=== PATIENT | male | born 1965 | race Caucasian/White ===

== ENCOUNTER → 2023-12-08 | Outpatient (CLI) | payer MEDICARE ==
--- NOTE | 2023-12-08 14:59 | US ---
EXAMINATION TYPE: US kidneys/renal and bladder DATE OF EXAM: 12/08/2023 COMPARISON: NONE CLINICAL INDICATION: Male, 57 years old with history of N20.0 CALCULUS KIDNEY; Hx stone, rt flank melvin n early september TECHNIQUE: Grayscale and color Doppler imaging of the bilateral kidneys and urinary bladder: FINDINGS: EXAM MEASUREMENTS: Right Kidney: 11.2x6.3x5.8 cm Left Kidney: 12.9x4.9x6.2 cm Right Kidney: No hydronephrosis or masses seen Left Kidney: No hydronephrosis or masses seen Bladder: wnl Bilateral Jets seen: Yes There is no evidence for hydronephrosis. No nephrolithiasis is seen. No masses are identified. The urinary bladder is anechoic. Bilateral ureteral jets are seen. exam limited by bowel and habitus IMPRESSION: Normal renal ultrasound. [facility], , 12/08/2023 2:57 PM
== END | disposition home or self-care (01) ==
LOC: RADUSWWP 14:26
PROVIDERS: ATTEND Urology
DX: N20.0 Calculus of kidney (principal)
CPT/HCPCS: 76770

== ENCOUNTER 2024-01-28 07:04 | Inpatient (IN) | payer MEDICARE ==
--- NOTE | 2024-01-28 07:11 | ED ---
Chest Pain HPI - General Stated Complaint: Chest pain Time Seen by Provider: 01/28/24 07:05 Source: patient, RN notes reviewed Mode of arrival: ambulatory Limitations: no limitations - History of Present Illness Initial Comments: 58-year-old male presents emergency department chief complaint of chest pain. Patient states that started late last night. States he did workout chest and shoulders but usually does not have any pain in his chest he states he has shoulder pain from prior surgery he states that he has had persistent pain throughout the night centralized. Does have a history of hypertension denies any significant history of diabetes or hyperlipidemia no prior cardiac disease no history of A-fib patient states he does feel short of breath with walking, exertional shortness of breath. Patient does admit that has been sick recently that started around . No reports of fever states he does feel his heart racing after he walked in from outside. - Related Data Home Medications Medication Instructions Recorded Confirmed allopurinoL [Allopurinol] 100 mg PO DAILY 06/14/14 01/28/24 amLODIPine [Norvasc] 5 mg PO DAILY 10/02/14 01/28/24 allopurinoL [Zyloprim] 300 mg PO DAILY 01/28/24 01/28/24 Allergies Allergy/AdvReac Type Severity Reaction Status Date / Time adhesive Allergy Rash/Hives Verified 10/02/14 08:45 Review of Systems ROS Statement: Those systems with pertinent positive or pertinent negative responses have been documented in the HPI. ROS Other: All systems not noted in ROS Statement are negative. EKG Findings - EKG Comments: EKG Findings:: EKG performed at 7: 19 sinus tachycardia rate of 122 QRS 162 QRS 89 QT/QTc 326/399 - EKG Results: EKG: interpreted by AARTI Past Medical History Past Medical History: Hyperlipidemia, Hypertension, Thyroid Disorder Additional Past Medical History / Comment(s): watches cholesterol History of Any Multi-Drug Resistant Organisms: None Reported Past Surgical History: Appendectomy, Cholecystectomy Additional Past Surgical History / Comment(s): colonoscopy, rt shoulder surgery Past Anesthesia/Blood Transfusion Reactions: No Reported Reaction Past Psychological History: No Psychological Hx Reported Past Alcohol Use History: Occasional Past Drug Use History: None Reported - Past Family History Mother Family Medical History: No Reported History General Exam Limitations: no limitations General appearance: alert, in no apparent distress Head exam: Present: atraumatic, normocephalic, normal inspection Eye exam: Present: normal appearance, PERRL, EOMI. Absent: scleral icterus, conjunctival injection, periorbital swelling ENT exam: Present: normal exam, normal oropharynx, mucous membranes moist Neck exam: Present: normal inspection, full ROM. Absent: tenderness, meningismus, lymphadenopathy Respiratory exam: Present: normal lung sounds bilaterally. Absent: respiratory distress, wheezes, rales, rhonchi, stridor Cardiovascular Exam: Present: regular rate, normal rhythm, normal heart sounds. Absent: systolic murmur, diastolic murmur, rubs, gallop, clicks GI/Abdominal exam: Present: soft, normal bowel sounds. Absent: distended, tenderness, guarding, rebound, rigid Neurological exam: Present: alert, oriented X3, CN II-XII intact, reflexes normal. Absent: motor sensory deficit Skin exam: Present: warm, dry, intact, normal color. Absent: rash Course Vital Signs 01/28/24 01/28/24 07:07 07:33 Temperature 97.5 F L 99.5 F Pulse Rate 127 H 118 H Respiratory 20 26 H Rate Blood Pressure 162/90 144/78 O2 Sat by Pulse 96 Oximetry Chest Pain MDM - MDM Was pt. sent in by a medical professional or institution (, PA, PLASTER PATTERNMAKER, urgent care, hospital, or longterm...) When possible be specific @ -No Did you speak to anyone other than the patient for history (EMS, parent, family, police, friend...)? What history was obtained from this source @ -No Did you review nursing and triage notes (agree or disagree)? Why? @ -I reviewed and agree with nursing and triage notes Were old charts reviewed (outside hosp., previous admission, EMS record, old EKG, old radiological studies, urgent care reports/EKG's, longterm records)? Report findings @ -No old charts were reviewed Differential Diagnosis (chest pain, altered mental status, abdominal pain women, abdominal pain men, vaginal bleeding, weakness, fever, dyspnea, syncope, headache, dizziness, GI bleed, back pain, seizure, CVA, palpatations, mental health, musculoskeletal)? @ -Differential Chest Pain: Stable Angina, Unstable Angina, STEMI, NSTEMI Aortic Dissection, Pneumothorax, Musculoskeletal, Esophageal Spasm GERD, Cholecystitis, Pancreatitis, Zoster, this is not meant to be an all-inclusive list. EKG interpreted by me (3pts min.). @ -As above X-rays interpreted by me (1pt min.). @ -Chest x-ray shows no acute cardiopulmonary process. CT interpreted by me (1pt min.). @ -None done U/S interpreted by me (1pt. min.). @ -None done What testing was considered but not performed or refused? (CT, X-rays, U/S, labs)? Why? @ -None What meds were considered but not given or refused? Why? @ -None Did you discuss the management of the patient with other professionals (professionals i.e. Dr., PA, PLASTER PATTERNMAKER, lab, RT, psych nurse, geriatric social work professor, saw sharpener, teacher, collections officer, patient case coordinator)? Give summary @ -EMH for admission Was smoking cessation discussed for >3mins.? @ -No Was critical care preformed (if so, how long)? @ -35 minutes Were there social determinants of health that impacted care today? How? (Homelessness, low income, unemployed, alcoholism, drug addiction, transportation, low edu. Level, literacy, decrease access to med. care, fdc, rehab)? @ -No Was there de-escalation of care discussed even if they declined (Discuss DNR or withdrawal of care, Hospice)? DNR status @ -No What co-morbidities impacted this encounter? (DM, HTN, Smoking, COPD, CAD, Cancer, CVA, ARF, Chemo, Hep., AIDS, mental health diagnosis, sleep apnea, morbid obesity)? @ -[Hypertension Was patient admitted / discharged? Hospital course, mention meds given and route, prescriptions, significant lab abnormalities, going to OR and other pertinent info. @ -Admitted patient presented for chest pain, dyspnea. Patient is COVID-19 positive no patient has elevated troponin, concerning CAD risk factors and symptoms. Patient will be admitted for repeat troponin, echocardiogram, cardiology evaluation. Undiagnosed new problem with uncertain prognosis? @ -[No Drug Therapy requiring intensive monitoring for toxicity (Heparin, Nitro, Insulin, Cardizem)? @Heparin Were any procedures done? @ -No Diagnosis/symptom? @ -Chest pain, COVID-19 Acute, or Chronic, or Acute on Chronic? @ -Acute Uncomplicated (without systemic symptoms) or Complicated (systemic symptoms)? @ -Complicated Side effects of treatment? @ -No Exacerbation, Progression, or Severe Exacerbation? @ -No Poses a threat to life or bodily function? How? (Chest pain, [place], [place], pneumonia, PE, COPD, DKA, ARF, appy, cholecystitis, CVA, Diverticulitis, Homicidal, Suicidal, threat to staff... and all critical care pts) @ -Yes ACS, causing cardiac arrest Critical Care Time Critical Care Time: Yes Total Critical Care Time: 35 Disposition Clinical Impression: Chest pain, COVID-19 Disposition: ADMITTED IP TO THIS HOSP Condition: Fair Referrals: Jackie Enriquez MD [Primary Care Provider] - 1-2 days Time of Disposition: 09:59
[2024-01-28] MEDS: ASPIRIN 81 MG PO STA (07:37)
[2024-01-28 08:29] LABS: Basophils % (A) 0 %; Eosinophils # (A) 0.1 k/uL (0-0.7); Eosinophils % (A) 1 %; HCT 48.5 % (39.0-53.0); HGB 16.1 gm/dL (13.0-17.5); Lymphocytes # (A) 0.5 k/uL (1.0-4.8); Lymphocytes % (A) 4 %; MCH 29.4 pg (25.0-35.0); MCHC 33.1 g/dL (31.0-37.0); MCV 88.9 fL (80.0-100.0); Mean Platelet Volume 8.6; Monocytes # (A) 0.9 k/uL (0-1.0); Monocytes % (A) 7 %; Neutrophils # (A) 10.7 k/uL (1.3-7.7); Neutrophils % (A) 87 %; Platelet Count 151 k/uL (150-450); RBC 5.45 m/uL (4.30-5.90); RDW 13.2 % (11.5-15.5); WBC 12.3 k/uL (3.8-10.6)
[2024-01-28 08:44] LABS: INR 1.1 (<1.2); Partial Thromboplastin Time 24.6 sec (22.0-30.0); Prothrombin Time 11.4 sec (10.0-12.5)
[2024-01-28 08:47] LABS: ALT 35 U/L (4-49); AST 34 U/L (17-59); African American GFR (CKD) >90 (>60 ml/min/1.73 sqM); Albumin 4.2 g/dL (3.5-5.0); Alkaline Phosphatase 60 U/L (38-126); Anion Gap 6 mmol/L; Blood Urea Nitrogen 20 mg/dL (9-20); Calcium 9.2 mg/dL (8.4-10.2); Carbon Dioxide 32 mmol/L (22-30); Chloride 101 mmol/L (98-107); Glucose 180 mg/dL (74-99); Magnesium 1.6 mg/dL (1.6-2.3); Non-African American GFR(CKD) 87 (>60 ml/min/1.73 sqM); Sodium 139 mmol/L (137-145); Total Protein 6.7 g/dL (6.3-8.2)
--- NOTE | 2024-01-28 08:53 | XR ---
EXAMINATION TYPE: XR chest 2V DATE OF EXAM: 01/28/2024 8:39 AM COMPARISON: None CLINICAL INDICATION: Male, 58 years old with history of Chest Pain, , TECHNIQUE: PA and lateral views FINDINGS: Heart normal size. Aorta and pulmonary vasculature within normal limits. No consolidation or pleural effusion. Some streaky left basilar opacity. [facility] throughout the thoracic spine. IMPRESSION: Note definite acute process. DISH throughout the thoracic spine. [facility], , 01/28/2024 8:51 AM
[2024-01-28 08:55] LABS: NT-Pro-B-Type Natriuretic Pept 28 pg/mL
[2024-01-28] MEDS ORDERED: NITROGLYCERIN SL TABS 0.4 MG TAB SUBLINGUAL PRN (09:57)
[2024-01-28] MEDS: ACETAMINOPHEN TAB 500 MG TAB PO STA (10:25)
[2024-01-28] MEDS: KETOROLAC 15 MG/ML 1 ML VIAL IVP STA (10:27)
[2024-01-28] MEDS: HEPARIN SODIUM 1,000 UN/ML (10ML VL) IV ONE (10:40)
[2024-01-28] MEDS: HEPARIN SOD,PORK IN 0.45% NACL 25,000 UNIT in 0.45% NACL 1 250ML.BAG IV SCH (10:41)
[2024-01-28] MEDS: METOPROLOL SUCCINATE (ER) 50 MG TAB.ER.24H PO SCH (13:10)
[2024-01-28] MEDS: ISOSORBIDE MONONITRATE ER 30 MG TAB.ER.24H PO SCH (13:11)
[2024-01-28] MEDS ORDERED: busPIRone HCl 10 MG TAB PO PRN (13:47)
--- NOTE | 2024-01-28 14:06 | P.CRDCN ---
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 He has a past medical history of hypertension, hypothyroidism, hyperlipidemia, GERD. We have been asked to evaluate the patient for chest pain. Patient states that he developed chest pain and was difficult to take a deep breath. He also had involvement of the left shoulder. He had onset at 10 PM yesterday. He states he still hurts when he takes a deep breath. No cough no fever. He states he recently was working out and sometimes his left shoulder gets sore from this anyway. He was not sure that his symptoms were related to his heart. He does state he has nasal congestion has been going on for couple days. Patient was found to be positive for COVID. He states he is a non-smoker, no alcohol use and no drug use. No family history of coronary artery disease. Patient is seen today in the emergency center waiting for a bed on the cardiac stepdown unit. Blood pressure 135/71, heart rate 105, pulse ox 96% on room air. Upon arrival, heart rate was 127. Patient has been started on a heparin drip. -EKG: Sinus tachycardia 122 bpm -Chest x-ray: No acute process -Laboratory studies: Troponin 0.049 and 0.082. WBC 12.3, hemoglobin 16. Creatinine 0.96. COVID 19 detected. -Home cardiac medications: Amlodipine 5 mg daily, atorvastatin 40 mg daily, losartan 100 mg daily. Review Of Systems: At the time of my exam: CONSTITUTIONAL: Denies fever or chills. HEENT: Denies blurred vision, vision changes, or eye pain. Denies hemoptysis CARDIOVASCULAR: Denies chest pain. Denies orthopnea. Denies PND. Denies palpitations RESPIRATORY: Denies shortness of breath. GASTROINTESTINAL: Denies abdominal pain. Denies nausea or vomiting. HEMATOLOGIC: Denies bleeding disorders. GENITOURINARY: Denies any blood in urine. SKIN: Denies puritis. Denies rash. Physical examination: Gen: This is a 58-year-old male in no acute distress VS: reviewed HEENT: Head is atraumatic, normocephalic. Pupils equal, round. Sclerae is anicteric. NECK: Supple. No JVD. LUNGS: Clear to auscultation. No wheezes or rhonchi. No intercostal retractions. HEART: Regular rate and rhythm. No murmur. ABDOMEN: Soft No tenderness. EXTREMITIES: No pedal edema. No calf tenderness. NEUROLOGICAL: Patient is awake, alert and oriented x3. Assessment: NSTEMI COVID-19 Hypertension Hyperlipidemia Hypothyroidism GERD Plan: Resume patient's home cardiac medications, decrease losartan to 50 mg daily Continue heparin drip Start patient on aspirin 81 mg daily, resume atorvastatin Add Imdur 30 mg daily and Toprol XL 50 mg daily Obtain 2-D echocardiogram and Doppler study to assess cardiac structure and function N.p.o. after midnight for possible cardiac catheterization. Patient will be assessed in the morning Further recommendations to follow based upon clinical course Thank you kindly for this consultation. Nurse practitioner note has been reviewed, I agree with documented findings and plan of care. Patient was seen and examined. Past Medical History Past Medical History: Hyperlipidemia, Hypertension, Thyroid Disorder Additional Past Medical History / Comment(s): watches cholesterol History of Any Multi-Drug Resistant Organisms: None Reported Past Surgical History: Appendectomy, Cholecystectomy Additional Past Surgical History / Comment(s): colonoscopy, rt shoulder surgery Past Anesthesia/Blood Transfusion Reactions: No Reported Reaction Past Psychological History: No Psychological Hx Reported Past Alcohol Use History: Occasional Past Drug Use History: None Reported - Past Family History Mother Family Medical History: No Reported History Medications and Allergies Home Medications Medication Instructions Recorded Confirmed Type allopurinoL [Allopurinol] 100 mg PO DAILY 06/14/14 01/28/24 History amLODIPine [Norvasc] 5 mg PO DAILY 10/02/14 01/28/24 History Atorvastatin [Lipitor] 40 mg PO DAILY 01/28/24 01/28/24 History Gabapentin [Neurontin] 400 mg PO BID PRN 01/28/24 01/28/24 History Levothyroxine Sodium [Synthroid] 175 mcg PO AC-BRKFST 01/28/24 01/28/24 History Liothyronine Sodium [Cytomel] 25 mcg PO AC-BID 01/28/24 01/28/24 History Loratadine [Claritin] 10 mg PO DAILY 01/28/24 01/28/24 History Losartan Potassium [Cozaar] 100 mg PO DAILY 01/28/24 01/28/24 History Omeprazole [PriLOSEC] 20 mg PO DAILY 01/28/24 01/28/24 History Testosterone Cypionate 200 mg IM Q10D 01/28/24 01/28/24 History [Depo-Testosterone] allopurinoL [Zyloprim] 300 mg PO DAILY 01/28/24 01/28/24 History busPIRone HCl [Buspar] 10 mg PO BID PRN 01/28/24 01/28/24 History Allergies Allergy/AdvReac Type Severity Reaction Status Date / Time adhesive Allergy Rash/Hives Verified 10/02/14 08:45 Physical Exam Vitals: Vital Signs Temp Pulse Resp BP Pulse Ox 01/28/24 10:47 99.1 F 114 H 24 152/76 01/28/24 07:33 99.5 F 118 H 26 H 144/78 01/28/24 07:07 97.5 F L 127 H 20 162/90 96 Intake and Output 01/27/24 01/28/24 01/28/24 22:59 06:59 14:59 Other: Weight 138.346 kg Results 01/28/24 08:13 01/28/24 08:13 Cardiac Enzymes 01/28/24 01/28/24 Range/Units 08:13 08:13 AST 34 (17-59) U/L Troponin I 0.049 H* (0.000-0.034) ng/mL Coagulation 01/28/24 Range/Units 08:13 PT 11.4 (10.0-12.5) sec APTT 24.6 (22.0-30.0) sec CBC 01/28/24 Range/Units 08:13 WBC 12.3 H (3.8-10.6) k/uL RBC 5.45 (4.30-5.90) m/uL Hgb 16.1 (13.0-17.5) gm/dL Hct 48.5 (39.0-53.0) % Plt Count 151 (150-450) k/uL Comprehensive Metabolic Panel 01/28/24 Range/Units 08:13 Sodium 139 (137-145) mmol/L Potassium 4.0 (3.5-5.1) mmol/L Chloride 101 (98-107) mmol/L Carbon Dioxide 32 H (22-30) mmol/L BUN 20 (9-20) mg/dL Creatinine 0.96 (0.66-1.25) mg/dL Glucose 180 H (74-99) mg/dL Calcium 9.2 (8.4-10.2) mg/dL AST 34 (17-59) U/L ALT 35 (4-49) U/L Alkaline Phosphatase 60 (38-126) U/L Total Protein 6.7 (6.3-8.2) g/dL Albumin 4.2 (3.5-5.0) g/dL Current Medications Generic Name Dose Route Start Last Admin Trade Name Freq PRN Reason Stop Dose Admin Aspirin 325 mg 01/29/24 09:00 Aspirin 325 Mg Tab PO DAILY [facility] Heparin Sodium (Porcine) 0 unit 01/28/24 09:32 Heparin Sodium 1,000 Un/Ml (10ml Vl) IV PER PROTOCOL PRN Low PTT Protocol Heparin Sodium/Sodium Chloride 250 mls @ 10.002 mls/hr 01/28/24 09:45 01/28/24 10:41 25,000 unit/ Sodium Chloride IV 7.23 units/kg/hr .Q24H LINDSAY 10.002 mls/hr Administration Protocol 7.23 UNITS/KG/HR Nitroglycerin 0.4 mg 01/28/24 09:57 Nitroglycerin Sl Tabs 0.4 Mg Tab SUBLINGUAL Q5M PRN Chest Pain Intake and Output 01/27/24 01/28/24 01/28/24 22:59 06:59 14:59 Other: Weight 138.346 kg Patient Weight 01/29/24 06:59 Weight 138.346 kg 01/28/24 08:13 01/28/24 08:13
[2024-01-28] MEDS: ATORVASTATIN 40 MG TAB PO SCH (15:58)
[2024-01-28] MEDS: amLODIPine 5 MG TAB PO SCH (15:58)
[2024-01-28] MEDS: HEPARIN SODIUM 1,000 UN/ML (10ML VL) IV PRN (18:30)
--- NOTE | 2024-01-28 20:20 | P.HPIM ---
History of Present Illness H&P Date: 01/28/24 Chief Complaint: Shortness of breath Patient is a 58-year-old male with a past medical history of hypertension, hyperlipidemia, hypothyroidism and anxiety presents to ER with complaints of chest pain. Patient states that he was having chest pain and left shoulder pain started last night and was also having difficulty taking deep breaths. Patient had subjective fevers and found to be 9 9 F at home. Was also having home shortness of breath with exertion. Also felt like heart beating fast with walking. Cough with no dyspnea sputum production. Patient's and his son are sick and his son came from college for the holiday. Patient did take with COVID-vaccine previously. Chest x-ray showed no definite acute process. DISH (diffuse idiopathic skeletal hyperostosis) throughout the thoracic spine. EKG showed sinus tachycardia. Heart rate went up to 122 Laboratory data showed WBC 12.3 hemoglobin 16.1 and platelets 151 neutrophils 10.7 D-dimer 0.25 Sodium 139 potassium 4.0 chloride 101 bicarb is 32 BUN 20 and creatinine 0.96 and blood sugar 180 liver enzymes are not elevated Troponin 0.049, 0.087 and 0.092 proBNP 28 COVID-19 PCR detected. Review of Systems Constitutional: Patient does have subjective fever. No chills. Generalized weakness and fatigue.. Abdomen: Patient denied nausea vomiting and diarrhea and abdominal pain. Cardiovascular: Patient did have chest pain and short of breath no palpitations. No leg swelling Respiratory: patient denied any cough or sputum production. Positive for shortness of breath Neurologic: Patient denied any numbness or tingling. no headache. Musculoskeletal: Patient denies any complaints of joint swelling or deformity. Skin: Negative Psychiatric: Negative Endocrine: No heat or cold intolerance. No recent weight gain. Genitourinary: No dysuria or hematuria. All other 14 point ROS negative except the above Past Medical History Past Medical History: Hyperlipidemia, Hypertension, Thyroid Disorder Additional Past Medical History / Comment(s): watches cholesterol History of Any Multi-Drug Resistant Organisms: None Reported Past Surgical History: Appendectomy, Cholecystectomy Additional Past Surgical History / Comment(s): colonoscopy, rt shoulder surgery Past Anesthesia/Blood Transfusion Reactions: No Reported Reaction Past Psychological History: No Psychological Hx Reported Past Alcohol Use History: Occasional Past Drug Use History: None Reported - Past Family History Mother Family Medical History: No Reported History Medications and Allergies Home Medications Medication Instructions Recorded Confirmed Type allopurinoL [Allopurinol] 100 mg PO DAILY 06/14/14 01/28/24 History amLODIPine [Norvasc] 5 mg PO DAILY 10/02/14 01/28/24 History Atorvastatin [Lipitor] 40 mg PO DAILY 01/28/24 01/28/24 History Gabapentin [Neurontin] 400 mg PO BID PRN 01/28/24 01/28/24 History Levothyroxine Sodium [Synthroid] 175 mcg PO AC-BRKFST 01/28/24 01/28/24 History Liothyronine Sodium [Cytomel] 25 mcg PO AC-BID 01/28/24 01/28/24 History Loratadine [Claritin] 10 mg PO DAILY 01/28/24 01/28/24 History Losartan Potassium [Cozaar] 100 mg PO DAILY 01/28/24 01/28/24 History Omeprazole [PriLOSEC] 20 mg PO DAILY 01/28/24 01/28/24 History Testosterone Cypionate 200 mg IM Q10D 01/28/24 01/28/24 History [Depo-Testosterone] allopurinoL [Zyloprim] 300 mg PO DAILY 01/28/24 01/28/24 History busPIRone HCl [Buspar] 10 mg PO BID PRN 01/28/24 01/28/24 History Allergies Allergy/AdvReac Type Severity Reaction Status Date / Time adhesive Allergy Rash/Hives Verified 10/02/14 08:45 Physical Exam Vitals: Vital Signs Temp Pulse Resp BP Pulse Ox 01/28/24 13:07 98.1 F 105 H 24 135/71 01/28/24 10:47 99.1 F 114 H 24 152/76 01/28/24 07:33 99.5 F 118 H 26 H 144/78 01/28/24 07:07 97.5 F L 127 H 20 162/90 96 Intake and Output 01/27/24 01/28/24 01/28/24 22:59 06:59 14:59 Other: Weight 138.346 kg PHYSICAL EXAMINATION: Patient is lying in the bed comfortably, no acute distress, awake alert and oriented.. HEENT: Normocephalic. Neck is supple. Pupils reactive. Nostrils clear. Oral cavity is moist. Neck reveals no JVD, carotid bruits, or thyromegaly. CHEST EXAMINATION: Trachea is central. Symmetrical expansion. Bilateral shallow breaths. No wheezing or rhonchi. CARDIAC: Normal S1, S2 with no gallops. No murmurs ABDOMEN: Soft. Bowel sounds normal. No organomegaly. No abdominal bruits. Extremities: reveal no edema. No clubbing or cyanosis Neurologically awake, alert, oriented x3 with well-coordinated movements. No focal deficits noted Skin: No rash or skin lesions. Psychiatric: Coperative. Nonsuicidal Musculoskeletal: No joint swelling or deformity. Normal range of motion. Results CBC & Chem 7: 01/28/24 08:13 01/28/24 08:13 Labs: Abnormal Lab Results - Last 24 Hours (Table) 01/28/24 01/28/24 01/28/24 Range/Units 08:13 08:13 08:13 WBC 12.3 H (3.8-10.6) k/uL Neutrophils # 10.7 H (1.3-7.7) k/uL Lymphocytes # 0.5 L (1.0-4.8) k/uL Carbon Dioxide 32 H (22-30) mmol/L Glucose 180 H (74-99) mg/dL Troponin I 0.049 H* (0.000-0.034) ng/mL SARS-CoV-2 (PCR) (Not Detectd) 01/28/24 01/28/24 Range/Units 08:28 10:33 WBC (3.8-10.6) k/uL Neutrophils # (1.3-7.7) k/uL Lymphocytes # (1.0-4.8) k/uL Carbon Dioxide (22-30) mmol/L Glucose (74-99) mg/dL Troponin I 0.087 H* (0.000-0.034) ng/mL SARS-CoV-2 (PCR) Detected A (Not Detectd) Thrombosis Risk Factor Assmnt - DVT/VTE Prophylaxis DVT/VTE Prophylaxis: Pharmacologic Prophylaxis ordered Assessment and Plan Assessment: Acute COVID-19 infection Exertional shortness of breath secondary to above Elevated troponin level possible demand ischemia/type II IA Hypertension Hyperemia Hypothyroidism GERD Anxiety DVT prophylaxis. Patient is already on heparin drip GI prophylaxis PPI Plan: Patient will be continued on telemonitoring. Continue with heparin drip. Patient will be continued on aspirin and statin send Imdur was added. Also Toprol-XL was added. 2D echocardiogram to assess left ventricular systolic function. Cardiology is considering catheterization. Continue with home medications. Continue with contact and droplet precautions. Follow-up closely. Time with Patient: Greater than 30
[2024-01-29 06:38] LABS: Basophils % (A) 0 %; Eosinophils # (A) 0.3 k/uL (0-0.7); Eosinophils % (A) 3 %; HCT 46.7 % (39.0-53.0); HGB 15.6 gm/dL (13.0-17.5); Lymphocytes # (A) 1.4 k/uL (1.0-4.8); Lymphocytes % (A) 15 %; MCH 29.8 pg (25.0-35.0); MCHC 33.4 g/dL (31.0-37.0); MCV 89.2 fL (80.0-100.0); Mean Platelet Volume 8.4; Monocytes # (A) 0.8 k/uL (0-1.0); Monocytes % (A) 8 %; Neutrophils # (A) 6.5 k/uL (1.3-7.7); Neutrophils % (A) 71 %; Platelet Count 151 k/uL (150-450); RBC 5.23 m/uL (4.30-5.90); RDW 13.6 % (11.5-15.5); WBC 9.1 k/uL (3.8-10.6)
[2024-01-29 06:46] LABS: INR 1.2 (<1.2); Partial Thromboplastin Time 49.1 sec (22.0-30.0); Prothrombin Time 12.7 sec (10.0-12.5)
[2024-01-29 06:59] LABS: LDH 168 U/L (120-246)
[2024-01-29 07:31] LABS: C Reactive Protein 18.7 mg/dL (<1.0)
[2024-01-29] MEDS ORDERED: NON FORMULARY DRUG (Losartan Potassium [Cozaar] 100 MG Tablet) PO SCH (09:00)
[2024-01-29] MEDS ORDERED: ASPIRIN 325 MG TAB PO SCH (09:00)
[2024-01-29] MEDS: CHOLECALCIFEROL 25 MCG (1000 IU) TABLET PO SCH (09:54)
[2024-01-29] MEDS: LOSARTAN 50 MG TAB PO SCH (09:54)
[2024-01-29] MEDS: allopurinoL 100 MG TAB PO SCH (09:54)
[2024-01-29] MEDS: ASPIRIN 81 MG PO SCH (09:54)
[2024-01-29] MEDS: PANTOPRAZOLE 40 MG TABLET PO SCH (09:54)
[2024-01-29] MEDS: LEVOTHYROXINE 88 MCG TAB PO SCH (09:54)
[2024-01-29] MEDS: ZINC SULFATE 220 MG CAP PO SCH (09:54)
--- NOTE | 2024-01-29 12:31 | CA ---
Transthoracic Echo Report Name: Chandrakant Whitmore Age: 58 Gender: M : 1965 Exam Date: 01/29/2024 07:44 Exam Location: [facility] Ht (in): 73 Wt (lb): 305 Ordering Physician: Marcellus Cortez PAC Attending/Referring Phys: [id number], Diego Tape Duplicator Yady Duong RDCS Procedure CPT: Indications: Chest Pain Cardiac Hx: Technical Quality: Technically difficult study Contrast 1: Definity Total Dose (mL): 2 Contrast 2: Total Dose (mL): MEASUREMENTS (Male / Female) Normal Values 2D ECHO LV Diastolic Diameter PLAX 4.9 cm 4.2 - 5.9 / 3.9 - 5.3 cm LV Systolic Diameter PLAX 3.8 cm IVS Diastolic Thickness 1.6 cm 0.6 - 1.0 / 0.6 - 0.9 cm LVPW Diastolic Thickness 1.8 cm 0.6 - 1.0 / 0.6 - 0.9 cm LV Relative Wall Thickness 0.7 RV Internal Dim ED PLAX 3.7 cm LA Systolic Diameter LX 4.0 cm 3.0 - 4.0 / 2.7 - 3.8 cm LV Diastolic Volume MOD BP 111.7 cm??? 67 - 155 / 56 - 104 cm??? LV Systolic Volume MOD BP 48.3 cm??? - 58 / 19 - 49 cm??? LV Ejection Fraction MOD BP 56.8 % >= 55 % LV Cardiac Index MOD BP 2093.3 cm???/min???m??? LV Diastolic Volume MOD 4C 116.5 cm??? LV Systolic Volume MOD 4C 52.4 cm??? LV Ejection Fraction MOD 4C 55.0 % LV Cardiac Index MOD 4C 2115.0 cm???/min???m??? LV Diastolic Length 4C 8.0 cm LV Systolic Length 4C 6.8 cm LV Diastolic Volume MOD 2C 105.6 cm??? LV Systolic Volume MOD 2C 43.9 cm??? LV Ejection Fraction MOD 2C 58.4 % LV Cardiac Index MOD 2C 2037.2 cm???/min???m??? LV Diastolic Length 2C 8.2 cm LV Systolic Length 2C 7.0 cm LA Volume 62.5 cm??? 18 - 58 / 22 - 52 cm??? LA Volume Index 22.9 cm???/m??? 16 - 28 cm???/m??? M-MODE Aortic Root Diameter MM 4.0 cm AV Cusp Separation MM 2.7 cm DOPPLER AV Peak Velocity 115.4 cm/s AV Peak Gradient 5.3 mmHg MV Area PHT 5.7 cm??? Mitral E Point Velocity 92.5 cm/s Mitral A Point Velocity 76.8 cm/s Mitral E to A Ratio 1.2 MV Deceleration Time 133.9 ms TR Peak Velocity 307.7 cm/s TR Peak Gradient 37.9 mmHg Right Ventricular Systolic Press 42.9 mmHg FINDINGS Left Ventricle Left ventricular ejection fraction is estimated at 45-50 %. Moderate concentric left ventricular hypertrophy. Left ventricular cavity size normal. Right Ventricle Mild right ventricular dilatation. Mild pulmonary hypertension. Right Atrium Normal right atrial size. No right atrial thrombus or mass seen. Left Atrium Mildly increased left atrial volume. No left atrial thrombus or mass present. Mitral Valve Structurally normal mitral valve. No mitral stenosis, regurgitation or prolapse. Aortic Valve Trileaflet aortic valve. No aortic valve stenosis or regurgitation. Tricuspid Valve Structurally normal tricuspid valve. Mild tricuspid regurgitation. Pulmonic Valve Pulmonic valve not well visualized. Pericardium No pericardial or pleural effusion. Aorta Moderate aortic dilatation at the level of the sinuses of valsalva 40 mm CONCLUSIONS Left ventricular ejection fraction 45-50% Moderately increased left ventricular wall thickness Mildly dilated left atrium Mild tricuspid regurgitation Aortic root measuring 4.0cm Previewed by: Dr. Baldomero Henley DO (Electronically Signed) Final Date: 29 January 2024 12:30
--- NOTE | 2024-01-29 12:58 | P.PN ---
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 He has a past medical history of hypertension, hypothyroidism, hyperlipidemia, GERD. We have been asked to evaluate the patient for chest pain. Patient states that he developed chest pain and was difficult to take a deep breath. He also had involvement of the left shoulder. He had onset at 10 PM yesterday. He states he still hurts when he takes a deep breath. No cough no fever. He states he recently was working out and sometimes his left shoulder gets sore from this anyway. He was not sure that his symptoms were related to his heart. He does state he has nasal congestion has been going on for couple days. Patient was found to be positive for COVID. He states he is a non-smoker, no alcohol use and no drug use. No family history of coronary artery disease. Patient is seen today in the emergency center waiting for a bed on the cardiac stepdown unit. Blood pressure 135/71, heart rate 105, pulse ox 96% on room air. Upon arrival, heart rate was 127. Patient has been started on a heparin drip. -EKG: Sinus tachycardia 122 bpm -Chest x-ray: No acute process -Laboratory studies: Troponin 0.049 and 0.082. WBC 12.3, hemoglobin 16. Creatinine 0.96. COVID 19 detected. -Home cardiac medications: Amlodipine 5 mg daily, atorvastatin 40 mg daily, losartan 100 mg daily. 01/29/24 Patient seen and examined. Patient is seen today on the Cardiac Stepdown Unit. Patient has been maintained on Heparin drip. BP 113/63, HR 80-90s, PO 95% on 2L. Third troponin 0.092. Patient denies having chest pain and no shortness of breath. Echocardiogram reveals EF 45 to 50%, moderately increased left ventricular wall thickness, mildly dilated left atrium, mild tricuspid regurgitation, aortic root 4 cm. Physical examination: Gen: This is a 58-year-old male in no acute distress VS: reviewed HEENT: Head is atraumatic, normocephalic. Pupils equal, round. Sclerae is anicteric. NECK: Supple. No JVD. LUNGS: Clear to auscultation. No wheezes or rhonchi. No intercostal retractions. HEART: Regular rate and rhythm. No murmur. ABDOMEN: Soft No tenderness. EXTREMITIES: No pedal edema. No calf tenderness. NEUROLOGICAL: Patient is awake, alert and oriented x3. Assessment: NSTEMI COVID-19 Hypertension Hyperlipidemia Hypothyroidism GERD Plan: Continue losartan to 50 mg daily, aspirin 81 mg daily, atorvastatin, Imdur 30 mg daily and Toprol XL 50 mg daily Continue heparin drip for another 24 hours N.p.o. at midnight for possible cardiac catheterization Further recommendations to follow based upon clinical course Nurse practitioner note has been reviewed, I agree with documented findings and plan of care. Patient was seen and examined. Objective - Vital Signs Vital signs: Vital Signs Temp 97.7 F 01/29/24 03:18 Pulse 91 01/29/24 03:18 Resp 18 01/29/24 03:18 BP 113/63 01/29/24 03:18 Pulse Ox 95 01/29/24 03:18 FiO2 Intake & Output 01/28/24 01/29/24 01/29/24 18:59 06:59 18:59 Intake Total 79.016 165.274 Balance 79.016 165.274 Weight 138.346 kg 139.6 kg Intake: Intake, IV Titration 79.016 165.274 Amount Heparin Sod,Pork in 0.45% 79.016 165.274 NaCl 25,000 unit In 0.45 % NaCl 1 250ml.bag @ 7.23 UNITS/KG/HR 10.002 mls/ hr IV .Q24H [facility] Rx#: [id number] Other: Voiding Method Toilet Urinal # Voids 1 - Labs CBC & Chem 7: 01/29/24 06:24 01/28/24 08:13 Labs: Abnormal Lab Results - Last 24 Hours (Table) 01/28/24 01/28/24 01/28/24 Range/Units 08:13 08:28 10:33 PT (10.0-12.5) sec INR (<1.2) APTT (22.0-30.0) sec Troponin I 0.049 H* 0.087 H* (0.000-0.034) ng/mL C-Reactive Protein (<1.0) mg/dL SARS-CoV-2 (PCR) Detected A (Not Detectd) 01/28/24 01/28/24 01/29/24 Range/Units 12:43 16:37 00:20 PT (10.0-12.5) sec INR (<1.2) APTT 31.3 H 42.2 H (22.0-30.0) sec Troponin I 0.092 H* (0.000-0.034) ng/mL C-Reactive Protein (<1.0) mg/dL SARS-CoV-2 (PCR) (Not Detectd) 01/29/24 01/29/24 Range/Units 06:24 06:24 PT 12.7 H (10.0-12.5) sec INR 1.2 H (<1.2) APTT 49.1 H (22.0-30.0) sec Troponin I (0.000-0.034) ng/mL C-Reactive Protein 18.7 H (<1.0) mg/dL SARS-CoV-2 (PCR) (Not Detectd)
[2024-01-29 13:05] VITALS: BMI 40.6
[2024-01-29 20:56] LABS: Chol/HDL Ratio 2.41 Ratio; VLDL Calculation 16.22 mg/dL (5.00-40.00)
--- NOTE | 2024-01-30 00:33 | P.PN ---
Subjective Progress Note Date: 01/29/24 Patient is a 58-year-old male with a past medical history of hypertension, hyperlipidemia, hypothyroidism and anxiety presents to ER with complaints of chest pain. Patient states that he was having chest pain and left shoulder pain started last night and was also having difficulty taking deep breaths. Patient had subjective fevers and found to be 9 9 F at home. Was also having home shortness of breath with exertion. Also felt like heart beating fast with walking. Cough with no dyspnea sputum production. Patient's and his son are sick and his son came from college for the holiday. Patient did take with COVID-vaccine previously. Chest x-ray showed no definite acute process. DISH (diffuse idiopathic skeletal hyperostosis) throughout the thoracic spine. EKG showed sinus tachycardia. Heart rate went up to 122 Laboratory data showed WBC 12.3 hemoglobin 16.1 and platelets 151 neutrophils 10.7 D-dimer 0.25 Sodium 139 potassium 4.0 chloride 101 bicarb is 32 BUN 20 and creatinine 0.96 a nd blood sugar 180 liver enzymes are not elevated Troponin 0.049, 0.087 and 0.092 proBNP 28 COVID-19 PCR detected. 01/29/2024 Patient is currently resting in bed. Awake alert and oriented x 3. No co mplaints of chest pain. Shortness of breath is much improved. Patient is being continued on heparin drip due to elevated troponin level. Patient has been afebrile. 2D echocardiogram showed ejection fraction of 45 to 50% with moderately increased left ventricular wall thickness, mildly dilated left atrium, mild tricuspid regurgitation and aortic root 4 cm. Laboratory data showed WBC 9.1 hemoglobin 15.6 and platelets 151 INR 1.2 CRP 18.7 procalcitonin level 0.24 and LDL 47. Current medications reviewed. Objective - Vital Signs Vital signs: Vital Signs Temp 98.5 F 01/29/24 20:00 Pulse 80 01/29/24 20:00 Resp 16 01/29/24 20:00 BP 115/68 01/29/24 20:00 Pulse Ox 94 L 01/29/24 20:00 FiO2 Intake & Output 01/29/24 01/29/24 01/30/24 06:59 18:59 06:59 Intake Total 165.274 463.856 Balance 165.274 463.856 Weight 139.6 kg 139.6 kg Intake: Intake, IV Titration 165.274 227.856 Amount Heparin Sod,Pork in 0.45% 165.274 227.856 NaCl 25,000 unit In 0.45 % NaCl 1 250ml.bag @ 7.23 UNITS/KG/HR 10.002 mls/ hr IV .Q24H [facility] Rx#: [id number] Oral 236 Other: Voiding Method Toilet Toilet Toilet Urinal Urinal Urinal # Voids 1 1 - Exam PHYSICAL EXAMINATION: Patient is lying in the bed comfortably, no acute distress, awake alert and oriented.. HEENT: Normocephalic. Neck is supple. Pupils reactive. Nostrils clear. Oral cavity is moist. Neck reveals no JVD, carotid bruits, or thyromegaly. CHEST EXAMINATION: Trachea is central. Symmetrical expansion. Lung corral clear to auscultation and percussion. CARDIAC: Normal S1, S2 with no gallops. No murmurs ABDOMEN: Soft. Bowel sounds normal. No organomegaly. No abdominal bruits. Extremities: reveal no edema. No clubbing or cyanosis Neurologically awake, alert, oriented x3 with well-coordinated movements. No focal deficits noted Skin: No rash or skin lesions. Psychiatric: Coperative. Nonsuicidal Musculoskeletal: No joint swelling or deformity. Normal range of motion. - Labs CBC & Chem 7: 01/29/24 06:24 01/28/24 08:13 Labs: Abnormal Lab Results - Last 24 Hours (Table) 01/29/24 01/29/24 01/29/24 Range/Units 00:20 06:24 06:24 PT 12.7 H (10.0-12.5) sec INR 1.2 H (<1.2) APTT 42.2 H 49.1 H (22.0-30.0) sec C-Reactive Protein 18.7 H (<1.0) mg/dL Assessment and Plan Assessment: Acute COVID-19 infection Exertional shortness of breath secondary to above Elevated troponin level possible NSTEMI Hypertension Hyperemia Hypothyroidism GERD Anxiety DVT prophylaxis. Patient is already on heparin drip GI prophylaxis PPI Plan: Patient will be continued on telemonitoring. Continue with heparin drip for another 24 hours as per cardiology.. Continue with aspirin and statin send Imdur was added. Losartan, Toprol-XL was added. 2D echocardiogram report as above. Cardiac catheterization tomorrow. Continue with home medications and follow-up closely. Continue with contact and droplet precautions. . Time with Patient: Greater than 30
[2024-01-30 06:48] LABS: Basophils % (A) 0 %; Eosinophils # (A) 0.3 k/uL (0-0.7); Eosinophils % (A) 3 %; HCT 49.4 % (39.0-53.0); Lymphocytes # (A) 1.1 k/uL (1.0-4.8); Lymphocytes % (A) 13 %; MCH 29.3 pg (25.0-35.0); MCHC 32.5 g/dL (31.0-37.0); MCV 90.3 fL (80.0-100.0); Mean Platelet Volume 8.6; Monocytes # (A) 0.5 k/uL (0-1.0); Monocytes % (A) 6 %; Neutrophils # (A) 6.1 k/uL (1.3-7.7); Neutrophils % (A) 76 %; Platelet Count 161 k/uL (150-450); RBC 5.47 m/uL (4.30-5.90); RDW 12.9 % (11.5-15.5); WBC 8.1 k/uL (3.8-10.6)
[2024-01-30 07:06] LABS: African American GFR (CKD) >90 (>60 ml/min/1.73 sqM); Anion Gap 2 mmol/L; Blood Urea Nitrogen 15 mg/dL (9-20); Calcium 8.8 mg/dL (8.4-10.2); Carbon Dioxide 27 mmol/L (22-30); Chloride 108 mmol/L (98-107); Glucose 134 mg/dL (74-99); Non-African American GFR(CKD) 80 (>60 ml/min/1.73 sqM); Sodium 137 mmol/L (137-145)
--- NOTE | 2024-01-30 11:17 | P.PN ---
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 He has a past medical history of hypertension, hypothyroidism, hyperlipidemia, GERD. We have been asked to evaluate the patient for chest pain. Patient states that he developed chest pain and was difficult to take a deep breath. He also had involvement of the left shoulder. He had onset at 10 PM yesterday. He states he still hurts when he takes a deep breath. No cough no fever. He states he recently was working out and sometimes his left shoulder gets sore from this anyway. He was not sure that his symptoms were related to his heart. He does state he has nasal congestion has been going on for couple days. Patient was found to be positive for COVID. He states he is a non-smoker, no alcohol use and no drug use. No family history of coronary artery disease. Patient is seen today in the emergency center waiting for a bed on the cardiac stepdown unit. Blood pressure 135/71, heart rate 105, pulse ox 96% on room air. Upon arrival, heart rate was 127. Patient has been started on a heparin drip. -EKG: Sinus tachycardia 122 bpm -Chest x-ray: No acute process -Laboratory studies: Troponin 0.049 and 0.082. WBC 12.3, hemoglobin 16. Creatinine 0.96. COVID 19 detected. -Home cardiac medications: Amlodipine 5 mg daily, atorvastatin 40 mg daily, losartan 100 mg daily. 01/29/24 Patient seen and examined. Patient is seen today on the Cardiac Stepdown Unit. Patient has been maintained on Heparin drip. BP 113/63, HR 80-90s, PO 95% on 2L. Third troponin 0.092. Patient denies having chest pain and no shortness of breath. Echocardiogram reveals EF 45 to 50%, moderately increased left ventricular wall thickness, mildly dilated left atrium, mild tricuspid regurgitation, aortic root 4 cm. 01/30/24 Patient is seen and examined. Blood pressure 119/74, heart rate 84, pulse ox 94% on room air. BUN 15 creatinine 1.03. Triglycerides 81, cholesterol 108, LDL 47, HDL 44. Procalcitonin 0.24. Due to reduced EF, discussed option of cardiac catheterization but due to also ongoing COVID, we will plan for medical management and outpatient workup. Physical examination: Gen: This is a 58-year-old male in no acute distress VS: reviewed HEENT: Head is atraumatic, normocephalic. Pupils equal, round. Sclerae is anicteric. NECK: Supple. No JVD. LUNGS: Clear to auscultation. No wheezes or rhonchi. No intercostal retractions. HEART: Regular rate and rhythm. No murmur. ABDOMEN: Soft No tenderness. EXTREMITIES: No pedal edema. No calf tenderness. NEUROLOGICAL: Patient is awake, alert and oriented x3. Assessment: NSTEMI COVID-19 Hypertension Hyperlipidemia Hypothyroidism GERD Plan: Continue amlodipine 5 mg daily, aspirin 81 mg daily, Lipitor 40 mg daily, losartan 50 mg daily Continue the addition of Imdur 30 mg daily and Toprol XL 50 mg daily Discontinue heparin drip Patient may eat Monitor for another 24 hours and plan for discharge home tomorrow Further recommendations to follow based upon clinical course Nurse practitioner note has been reviewed, I agree with documented findings and plan of care. Patient was seen and examined. Objective - Vital Signs Vital signs: Vital Signs Temp 98.5 F 01/29/24 20:00 Pulse 84 01/30/24 04:00 Resp 16 01/30/24 04:00 BP 119/74 01/30/24 04:00 Pulse Ox 94 L 01/30/24 04:00 FiO2 Intake & Output 01/29/24 01/30/24 01/30/24 18:59 06:59 18:59 Intake Total 463.856 Balance 463.856 Weight 139.6 kg 137.1 kg Intake: Intake, IV Titration 227.856 Amount Heparin Sod,Pork in 0.45% 227.856 NaCl 25,000 unit In 0.45 % NaCl 1 250ml.bag @ 7.23 UNITS/KG/HR 10.002 mls/ hr IV .Q24H [facility] Rx#: [id number] Oral 236 Other: Voiding Method Toilet Toilet Urinal Urinal # Voids 1 1 - Labs CBC & Chem 7: 01/30/24 06:30 01/30/24 06:30 Labs: Abnormal Lab Results - Last 24 Hours (Table) 01/30/24 01/30/24 Range/Units 06:30 06:30 APTT 33.5 H (22.0-30.0) sec Chloride 108 H (98-107) mmol/L Glucose 134 H (74-99) mg/dL
--- NOTE | 2024-01-30 15:20 | P.PN ---
Subjective Progress Note Date: 01/30/24 58-year-old male with a past medical history of hypertension, hyperlipidemia, hypothyroidism and anxiety presents to ER with complaints of chest pain. Patient states that he was having chest pain and left shoulder pain started last night and was also having difficulty taking deep breaths. Patient had johnson bjective fevers and found to be 9 9 F at home. Was also having home shortness of breath with exertion. Also felt like heart beating fast with walking. Cough with no dyspnea sputum production. Patient's and his son are sick and his son came from college for the holiday. Patient did take with COVID-vaccine previously. Chest x-ray showed no definite acute process. DISH (diffuse idiopathic skeletal hyperostosis) throughout the thoracic spine. EKG showed sinus tachycardia. Heart rate went up to 122 Laboratory data showed WBC 12.3 hemoglobin 16.1 and platelets 151 neutrophils 10.7 D-dimer 0.25 Sodium 139 potassium 4.0 chloride 101 bicarb is 32 BUN 20 and creatinine 0.96 and blood sugar 180 liver enzymes are not elevated Troponin 0.049, 0.087 and 0.092 proBNP 28 COVID-19 PCR detected. Objective - Vital Signs Vital signs: Vital Signs Temp 98.5 F 01/29/24 20:00 Pulse 84 01/30/24 04:00 Resp 16 01/30/24 04:00 BP 119/74 01/30/24 04:00 Pulse Ox 94 L 01/30/24 04:00 FiO2 Intake & Output 01/29/24 01/30/24 01/30/24 18:59 06:59 18:59 Intake Total 463.856 Balance 463.856 Weight 139.6 kg 137.1 kg Intake: Intake, IV Titration 227.856 Amount Heparin Sod,Pork in 0.45% 227.856 NaCl 25,000 unit In 0.45 % NaCl 1 250ml.bag @ 7.23 UNITS/KG/HR 10.002 mls/ hr IV .Q24H [facility] Rx#: [id number] Oral 236 Other: Voiding Method Toilet Toilet Urinal Urinal # Voids 1 1 - Exam Patient is lying in the bed comfortably, no acute distress, awake alert and oriented.. HEENT: Normocephalic. Neck is supple. Pupils reactive. Nostrils clear. Oral cavity is moist. Neck reveals no JVD, carotid bruits, or thyromegaly. CHEST EXAMINATION: Trachea is central. Symmetrical expansion. Lung corral clear to auscultation and percussion. CARDIAC: Normal S1, S2 with no gallops. No murmurs ABDOMEN: Soft. Bowel sounds normal. No organomegaly. No abdominal bruits. Extremities: reveal no edema. No clubbing or cyanosis Neurologically awake, alert, oriented x3 with well-coordinated movements. No focal deficits noted Skin: No rash or skin lesions. Psychiatric: Coperative. Nonsuicidal Musculoskeletal: No joint swelling or deformity. Normal range of motion. - Labs CBC & Chem 7: 01/30/24 06:30 12 06:30 Labs: Abnormal Lab Results - Last 24 Hours (Table) 01/30/24 01/30/24 Range/Units 06:30 06:30 APTT 33.5 H (22.0-30.0) sec Chloride 108 H (98-107) mmol/L Glucose 134 H (74-99) mg/dL Assessment and Plan Assessment: Acute COVID-19 infection Exertional shortness of breath secondary to above Elevated troponin level possible NSTEMI Hypertension Hyperemia Hypothyroidism GERD Anxiety DVT prophylaxis. Patient is already on heparin drip GI prophylaxis PPI Plan: Patient will be continued on telemonitoring. Continue with heparin drip for another 24 hours as per cardiology.. Continue with aspirin and statin send Imdur was added. Losartan, Toprol-XL was added. 2D echocardiogram report as above. Cardiac catheterization tomorrow. Continue with home medications and follow-up closely. Continue with contact and droplet precautions. .
[2024-01-30] MEDS: HEPARIN SODIUM,PORCINE 5,000 UNIT/ML 1 ML VIAL SQ SCH (16:10)
[2024-01-31 07:03] LABS: Basophils % (A) 0 %; Eosinophils # (A) 0.3 k/uL (0-0.7); Eosinophils % (A) 4 %; HCT 48.6 % (39.0-53.0); HGB 16.1 gm/dL (13.0-17.5); Lymphocytes # (A) 1.4 k/uL (1.0-4.8); Lymphocytes % (A) 18 %; MCH 29.4 pg (25.0-35.0); MCHC 33.1 g/dL (31.0-37.0); Mean Platelet Volume 9.2; Monocytes # (A) 0.5 k/uL (0-1.0); Monocytes % (A) 7 %; Neutrophils # (A) 5.4 k/uL (1.3-7.7); Neutrophils % (A) 69 %; Platelet Count 191 k/uL (150-450); RBC 5.46 m/uL (4.30-5.90); RDW 13.3 % (11.5-15.5); WBC 7.7 k/uL (3.8-10.6)
[2024-01-31 07:27] LABS: African American GFR (CKD) 80 (>60 ml/min/1.73 sqM); Anion Gap 5 mmol/L; Blood Urea Nitrogen 16 mg/dL (9-20); Calcium 9.3 mg/dL (8.4-10.2); Carbon Dioxide 32 mmol/L (22-30); Chloride 103 mmol/L (98-107); Glucose 110 mg/dL (74-99); Non-African American GFR(CKD) 70 (>60 ml/min/1.73 sqM); Potassium 4.4 mmol/L (3.5-5.1); Sodium 140 mmol/L (137-145)
[2024-01-31 08:22] VITALS: TEMP 98.4
--- NOTE | 2024-01-31 10:38 | P.PN ---
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 He has a past medical history of hypertension, hypothyroidism, hyperlipidemia, GERD. We have been asked to evaluate the patient for chest pain. Patient states that he developed chest pain and was difficult to take a deep breath. He also had involvement of the left shoulder. He had onset at 10 PM yesterday. He states he still hurts when he takes a deep breath. No cough no fever. He states he recently was working out and sometimes his left shoulder gets sore from this anyway. He was not sure that his symptoms were related to his heart. He does state he has nasal congestion has been going on for couple days. Patient was found to be positive for COVID. He states he is a non-smoker, no alcohol use and no drug use. No family history of coronary artery disease. Patient is seen today in the emergency center waiting for a bed on the cardiac stepdown unit. Blood pressure 135/71, heart rate 105, pulse ox 96% on room air. Upon arrival, heart rate was 127. Patient has been started on a heparin drip. -EKG: Sinus tachycardia 122 bpm -Chest x-ray: No acute process -Laboratory studies: Troponin 0.049 and 0.082. WBC 12.3, hemoglobin 16. Creatinine 0.96. COVID 19 detected. -Home cardiac medications: Amlodipine 5 mg daily, atorvastatin 40 mg daily, losartan 100 mg daily. 01/29/24 Patient seen and examined. Patient is seen today on the Cardiac Stepdown Unit. Patient has been maintained on Heparin drip. BP 113/63, HR 80-90s, PO 95% on 2L. Third troponin 0.092. Patient denies having chest pain and no shortness of breath. Echocardiogram reveals EF 45 to 50%, moderately increased left ventricular wall thickness, mildly dilated left atrium, mild tricuspid regurgitation, aortic root 4 cm. 01/30/24 Patient is seen and examined. Blood pressure 119/74, heart rate 84, pulse ox 94% on room air. BUN 15 creatinine 1.03. Triglycerides 81, cholesterol 108, LDL 47, HDL 44. Procalcitonin 0.24. Due to reduced EF, discussed option of cardiac catheterization but due to also ongoing COVID, we will plan for medical management and outpatient workup. 01/31/24 Patient is seen and examined. He denies having any chest pain. He has been ambulating in his room without any symptoms. Blood pressure 128/75, heart rate 88, pulse ox 95% on room air. Physical examination: Gen: This is a 58-year-old male in no acute distress VS: reviewed HEENT: Head is atraumatic, normocephalic. Pupils equal, round. Sclerae is anicteric. NECK: Supple. No JVD. LUNGS: Clear to auscultation. No wheezes or rhonchi. No intercostal retractions. HEART: Regular rate and rhythm. No murmur. ABDOMEN: Soft No tenderness. EXTREMITIES: No pedal edema. No calf tenderness. NEUROLOGICAL: Patient is awake, alert and oriented x3. Assessment: NSTEMI COVID-19 Hypertension Hyperlipidemia Hypothyroidism GERD Plan: Continue amlodipine 5 mg daily, aspirin 81 mg daily, Lipitor 40 mg daily, losartan 50 mg daily Continue the addition of Imdur 30 mg daily and Toprol XL 50 mg daily Patient is cleared for discharge home and may follow-up in the office with Dr. Oviedo in 1 week Nurse practitioner note has been reviewed, I agree with documented findings and plan of care. Patient was seen and examined. Objective - Vital Signs Vital signs: Vital Signs Temp 98.4 F 01/31/24 08:20 Pulse 88 01/31/24 08:20 Resp 17 01/31/24 08:20 BP 128/75 01/31/24 08:20 Pulse Ox 95 01/31/24 08:20 FiO2 Intake & Output 01/30/24 01/31/24 01/31/24 18:59 06:59 18:59 Intake Total 658 540 Balance 658 540 Intake: Oral 658 540 Other: Voiding Method Toilet Toilet Toilet Urinal Urinal Urinal # Voids 1 2 - Labs CBC & Chem 7: 01/31/24 05:44 01/31/24 05:44 Labs: Abnormal Lab Results - Last 24 Hours (Table) 01/31/24 Range/Units 05:44 Carbon Dioxide 32 H (22-30) mmol/L Glucose 110 H (74-99) mg/dL
[2024-01-31 11:25] VITALS: BP 138/84; PULSE 85; RESP 16
--- NOTE | 2024-01-31 12:31 | CONS ---
CONSULTATION HISTORY OF PRESENT ILLNESS: Chandrakant is a 58-year-old gentleman, who is admitted to hospital with COVID infection. His predominant symptoms were in the form of pleuritic chest discomfort and musculoskeletal pain and symptoms of viral infection. He had mild troponin elevation. EKG revealed ST changes, more suggestive of myopericarditis. An echocardiogram showed mild LV systolic dysfunction without any regional wall motion abnormalities. He was treated with IV heparin for 2 days. At the time of my evaluation this morning, he appears much better. He is free of chest discomfort. He is not short of breath. He is ambulating inside the room without any problems. MEDICATIONS: The patient is currently on: 1. Aspirin. 2. Norvasc. 3. Lipitor. 4. Imdur. 5. Cozaar. 6. Toprol-XL. PLAN: The patient's troponin elevation could be related to myopericarditis. We certainly need to rule out underlying ischemic heart disease. I will see the patient in my office in a week's time and schedule him for a stress test. MIRIAM / KAHLIL: [phone] /
== END 2024-01-31 13:25 | disposition home or self-care (01) | DRG 177 ==
LOC: EC 07:04 → 3SCARD 09:56
PROVIDERS: ADMIT Hospitalist; ATTEND Hospitalist
DX: U07.1 COVID-19 (principal); I21.A1 Myocardial infarction type 2; E03.9 Hypothyroidism, unspecified; E78.5 Hyperlipidemia, unspecified; I10 Essential (primary) hypertension; M48.14 Ankylosing hyperostosis [Forestier], thoracic region; F41.9 Anxiety disorder, unspecified; K21.9 Gastro-esophageal reflux disease without esophagitis; Z79.890 Hormone replacement therapy; Z79.899 Other long term (current) drug therapy
CPT/HCPCS: 36415; 71046; 80048; 80053; 80061; 83615; 83735; 83880; 84145; 84484; 85025; 85379; 85610; 85730; 86140; 87636; 93005; 93306; 96365; 96366; 96375; 99291

== ENCOUNTER 2024-07-07 11:05 | Inpatient (IN) | payer MEDICARE, OTHER ==
[2024-07-07 11:31] LABS: Glucose,Whole Blood 136 mg/dL (70-110)
--- NOTE | 2024-07-07 11:57 | CT ---
EXAMINATION TYPE: CODE STROKE: CT brain wo contr DATE OF EXAM: 07/07/2024 11:51 AM COMPARISON: None. CLINICAL INDICATION: Male, 58 years old with history of Neuro deficit, acute, stroke suspected, Code stroke. Rt side numbness., TECHNIQUE: Examination was done in axial plane without intravenous contrast. Coronal and sagittal r econstructions performed. CT DLP: 1196.1 mGycm, Automated exposure control for dose reduction was used. FINDINGS: There is no evidence of acute intracranial hemorrhage, acute ischemic changes, mass, mass-effect, or extra-axial fluid collection. There is no effacement of cerebral sulci or basal subarachnoid cister ns. There is no hydrocephalus. There is no midline shift. Yan-white matter distinction is preserv ed. Lobulated mucosal thickening floors of the maxillary sinuses and mild mucosal thickening throughout t he ethmoid air cells. Slight rightward nasal septal deviation. Orbits and globes are intact. Mastoid air cells are well pneumatized. IMPRESSION: No acute intracranial abnormality seen. [facility], , 07/07/2024 11:54 AM
[2024-07-07 12:01] LABS: Basophils # (A) 0.04 10*3/uL (0.00-0.10); Basophils % (A) 0.7 %; Eosinophils # (A) 0.12 10*3/uL (0.04-0.35); Eosinophils % (A) 2.2 %; HCT 48.2 % (39.6-50.0); HGB 16.7 g/dL (13.0-17.0); Lymphocytes % (A) 20.3 %; MCH 29.7 pg (27.0-32.0); MCHC 34.6 g/dL (32.0-37.0); MCV 85.8 fL (80.0-97.0); Mean Platelet Volume 10.7 fL (9.5-12.2); Monocytes # (A) 0.54 10*3/uL (0.20-1.00); Neutrophils % (A) 66.4 %; Platelet Count 174 10*3/uL (140-440); RBC 5.62 10*6/uL (4.40-5.60); RDW 12.8 % (11.5-14.5); WBC 5.42 10*3/uL (4.50-10.00)
[2024-07-07] MEDS: SODIUM CHLORIDE 0.9% 1,000 ML IV STA (12:05)
[2024-07-07 12:07] LABS: Partial Thromboplastin Time 22.3 sec (22.0-30.0); Prothrombin Time 10.9 sec (10.0-12.5)
[2024-07-07 12:09] LABS: ALT 28 U/L (4-49); AST 26 U/L (17-59); African American GFR (CKD) >90 (>60 ml/min/1.73 sqM); Albumin 4.1 g/dL (3.5-5.0); Alkaline Phosphatase 58 U/L (38-126); Anion Gap 10 mmol/L; Blood Urea Nitrogen 17 mg/dL (9-20); Calcium 9.8 mg/dL (8.4-10.2); Carbon Dioxide 28 mmol/L (22-30); Chloride 103 mmol/L (98-107); Creatine Kinase 236 U/L (55-170); Glucose 136 mg/dL (74-99); Non-African American GFR(CKD) >90 (>60 ml/min/1.73 sqM); Potassium 4.1 mmol/L (3.5-5.1); Sodium 141 mmol/L (137-145); Total Bilirubin 0.7 mg/dL (0.2-1.3); Total Protein 6.7 g/dL (6.3-8.2)
[2024-07-07 12:16] LABS: Appearance,Urine Clear (Clear); Bilirubin,Urine Negative (Negative); Blood,Urine Negative (Negative); Color,Urine Light Yellow; Glucose,Urine (UA) Negative (Negative); Ketones,Urine Negative (Negative); Leukocyte Esterase,Urine Negative (Negative); Nitrite,Urine Negative (Negative); Protein,Urine Negative (Negative); Urobilinogen,Urine <2.0 mg/dL (<2.0)
--- NOTE | 2024-07-07 12:16 | CT ---
EXAMINATION TYPE: CT angio head neck DATE OF EXAM: 07/07/2024 12:09 PM COMPARISON: Correlation CT brain same day. CLINICAL INDICATION: Male, 58 years old with history of Neuro deficit, acute, stroke suspected; PHH, Code stroke. Rt side numbness. TECHNIQUE: Axially acquired helical CT angiogram of the head and neck was obtained with contrast. Axi al images are supplemented with 3D reconstructions and MIP images which were post-processed at an in dependent workstation. NASCET criteria used. Contrast used:65 ml mL of Isovue 370 with IV Contrast, Oral contrast used: None. CT DLP: 2414.4 mGycm, Automated exposure control for dose reduction was used. FINDINGS: CTA HEAD: The bilateral vertebral and basilar artery are patent. There is persistent origin left posterio r cerebral artery. Otherwise, posterior circulation appears patent. Dural venous sinuses appear patent. Bilateral internal carotid arteries are patent. Incidental hypoplastic A-1 segment left anterior cere bral artery. Otherwise, the remainder of the anterior circulation is patent. No aneurysmal change is identified. CTA NECK: Incidental moderate bilateral palatine tonsillar hypertrophy. Mild lingual tonsillar hypertrophy. Conventional arterial branching anatomy. The vertebral arteries are codominant and patent. The bilateral common and internal carotid arteries are widely patent without any significant atherosc lerotic changes. IMPRESSION: 1. CTA neck: Widely patent vertebral and carotid arteries of the neck. 2. CTA head: No large vessel intracranial arterial occlusion, significant stenosis, or aneurysmal johan nge is seen. Some normal anatomic variation as mentioned above. [facility], , 07/07/2024 12:13 PM
--- NOTE | 2024-07-07 12:37 | XR ---
EXAMINATION TYPE: XR chest 2V DATE OF EXAM: 07/07/2024 12:26 PM COMPARISON: 01/28/2024 CLINICAL INDICATION: Male, 58 years old with history of confusion, altered mental status, , TECHNIQUE: PA and lateral views FINDINGS: Heart upper limits of normal in size. Mild bronchial cuffing. Strandy atelectasis left base. Mild hyp erinflation. No consolidation or pleural effusion. IMPRESSION: Possible underlying COPD. Borderline heart size. Otherwise, no acute process seen. [facility], , 07/07/2024 12:34 PM
--- NOTE | 2024-07-07 13:33 | ED ---
General Adult HPI - General Chief complaint: Neuro Symptoms/Deficit Stated complaint: R side numbness Source: patient Mode of arrival: ambulatory Limitations: no limitations - Related Data Home Medications Medication Instructions Recorded Confirmed allopurinoL [Allopurinol] 100 mg PO DAILY 06/14/14 07/07/24 amLODIPine [Norvasc] 5 mg PO DAILY 10/02/14 07/07/24 Atorvastatin [Lipitor] 40 mg PO DAILY 01/28/24 07/07/24 Levothyroxine Sodium [Synthroid] 175 mcg PO AC-BRKFST 01/28/24 07/07/24 Liothyronine Sodium [Cytomel] 25 mcg PO BID 01/28/24 07/07/24 Losartan Potassium [Cozaar] 100 mg PO DAILY 01/28/24 07/07/24 Omeprazole [PriLOSEC] 20 mg PO DAILY 01/28/24 07/07/24 Testosterone Cypionate 200 mg IM Q10D 01/28/24 07/07/24 [Depo-Testosterone] allopurinoL [Zyloprim] 300 mg PO DAILY 01/28/24 07/07/24 busPIRone HCl [Buspar] 10 mg PO DAILY 01/28/24 07/07/24 Multivitamins, Thera [Multivitamin 1 tab PO DAILY 07/07/24 07/07/24 (formulary)] Previous Rx's Medication Instructions Recorded Metoprolol Succinate (ER) [Toprol 50 mg PO DAILY 30 Days #30 tab 01/31/24 XL] Allergies Allergy/AdvReac Type Severity Reaction Status Date / Time adhesive Allergy Rash/Hives Verified 07/07/24 14:08 Review of Systems ROS Statement: Those systems with pertinent positive or pertinent negative responses have been documented in the HPI. ROS Other: All systems not noted in ROS Statement are negative. Past Medical History Past Medical History: Hyperlipidemia, Hypertension, Thyroid Disorder Additional Past Medical History / Comment(s): watches cholesterol History of Any Multi-Drug Resistant Organisms: None Reported Past Surgical History: Appendectomy, Cholecystectomy Additional Past Surgical History / Comment(s): colonoscopy, rt shoulder surgery Past Anesthesia/Blood Transfusion Reactions: No Reported Reaction Past Psychological History: No Psychological Hx Reported Smoking Status: Never smoker Past Alcohol Use History: Occasional Past Drug Use History: None Reported - Past Family History Mother Family Medical History: No Reported History General Exam Limitations: no limitations Course Vital Signs 07/07/24 07/07/24 07/07/24 11:08 11:32 11:47 Temperature 98 F 97.9 F 98.0 F Pulse Rate 96 89 85 Respiratory 18 18 20 Rate Blood Pressure 151/75 159/72 148/75 O2 Sat by Pulse 96 96 96 Oximetry 07/07/24 07/07/24 07/07/24 12:02 12:17 12:32 Temperature 98.1 F Pulse Rate 81 82 80 Respiratory 20 20 18 Rate Blood Pressure 138/73 138/71 128/62 O2 Sat by Pulse 96 95 95 Oximetry 07/07/24 07/07/24 07/07/24 12:47 13:02 13:17 Temperature Pulse Rate 81 81 77 Respiratory 18 20 18 Rate Blood Pressure 113/64 106/64 110/69 O2 Sat by Pulse 96 96 96 Oximetry 07/07/24 07/07/24 07/07/24 13:29 13:47 14:17 Temperature Pulse Rate 80 76 83 Respiratory 18 18 18 Rate Blood Pressure 114/68 126/69 125/70 O2 Sat by Pulse 96 97 96 Oximetry Medical Decision Making - Medical Decision Making Was pt. sent in by a medical professional or institution (, PA, [employer], urgent care, hospital, or residential...) When possible be specific @ -No Did you speak to anyone other than the patient for history (EMS, parent, family, police, friend...)? What history was obtained from this source @ -No Did you review nursing and triage notes (agree or disagree)? Why? @ -I reviewed and agree with nursing and triage notes Were old charts reviewed (outside hosp., previous admission, EMS record, old EKG, old radiological studies, urgent care reports/EKG's, residential records)? Report findings @ -No old charts were reviewed Differential Diagnosis (chest pain, altered mental status, abdominal pain women, abdominal pain men, vaginal bleeding, weakness, fever, dyspnea, syncope, headache, dizziness, GI bleed, back pain, seizure, CVA, palpatations, mental health, musculoskeletal)? @ -Differential CVA Ischemic stroke, hemorrhagic stroke, brain tumor, atypical migraine, Wernicke's encephalopathy, seizure, multiple sclerosis, meningitis, encephalitis, hypoglyce derrick, Guillain-Carr, electrolytes disturbance, myasthenia gravis.... This is not meant to be an all-inclusive list EKG interpreted by me (3pts min.). @ -As above X-rays interpreted by me (1pt min.). @ -Chest x-ray reveals no obvious acute cardiopulmonary process. CT interpreted by me (1pt min.). @ -Brain CT negative for any obvious acute intracranial process. CT angiogram head and neck negative for any obvious acute process. U/S interpreted by me (1pt. min.). @ -None done What testing was considered but not performed or refused? (CT, X-rays, U/S, labs)? Why? @ -None What meds were considered but not given or refused? Why? @ -None Did you discuss the management of the patient with other professionals (professionals i.e. , PA, [employer], lab, RT, psych nurse, social media analyst, test fixture designer, teacher, production officer, community case manager)? Give summary @ -Discussed with neurocritical care Dr. Ulloa who was in agreement plan for workup and likely medical admission for evaluation by neurology. He will be informed of any findings on CT imaging. Discussed with the admitting provider, Dr. Staton of [facility] who accepted the admission. Was smoking cessation discussed for >3mins.? @ -No Was critical care preformed (if so, how long)? @ -Yes, 31 minutes Were there social determinants of health that impacted care today? How? (Homelessness, low income, unemployed, alcoholism, drug addiction, transportation, low edu. Level, literacy, decrease access to med. care, skilled nursing, rehab)? @ -No Was there de-escalation of care discussed even if they declined (Discuss DNR or withdrawal of care, Hospice)? DNR status @ -No What co-morbidities impacted this encounter? (DM, HTN, Smoking, COPD, CAD, Cancer, CVA, ARF, Chemo, Hep., AIDS, mental health diagnosis, sleep apnea, morbid obesity)? @ -None Was patient admitted / discharged? Hospital course, mention meds given and route, prescriptions, significant lab abnormalities, going to OR and other pertinent info. @ -Patient presents with right-sided facial droop as well as dysarthria, waking up with the symptoms approximately at 10 AM. Last known well was 11:30 PM last night. Symptoms could be related to Johnson's palsy however patient still has movement of the right forehead as well as closure of the right eye although it seems mildly weaker. Discussed with the patient and he will be made a code stroke. He was in agreement this plan. I spoke with neurocritical care Dr. Ulloa who was also in agreement with plan for workup. He will be notified of any change in symptoms or any findings on CT. Vitals are within acceptable limits. Patient's laboratory studies returned relatively unremarkable. CT imaging negative for any obvious acute intracranial process. Chest x-ray unremarkable. EKG unremarkable. On reevaluation, patient remains symptomatic. I did discuss with him and we both agreed his best to admit the patient at this time for evaluation by neurology. He will be given empirically dose of a steroid in case it is Johnson's palsy but also started on aspirin. He was in agreement this plan. I spoke with the admitting provider, Dr. Staton who accepted the admission. Consult placed to neurology Dr. Sharma. Undiagnosed new problem with uncertain prognosis? @ -No Drug Therapy requiring intensive monitoring for toxicity (Heparin, Nitro, I nsulin, Cardizem)? @ -No Were any procedures done? @ -No Diagnosis/symptom? @ -Right sided facial droop, Johnson's palsy versus CVA Acute, or Chronic, or Acute on Chronic? @ -Acute Uncomplicated (without systemic symptoms) or Complicated (systemic symptoms)? @ -Complicated Side effects of treatment? @ -No Exacerbation, Progression, or Severe Exacerbation? @ -No Poses a threat to life or bodily function? How? (Chest pain, USA, CA, pneumonia, PE, COPD, DKA, ARF, appy, cholecystitis, CVA, Diverticulitis, Homicidal, Suicidal, threat to staff... and all critical care pts) @ -Yes - Lab Data Result diagrams: 07/07/24 11:36 07/07/24 11:36 Lab Results 07/07/24 07/07/24 07/07/24 Range/Units 11:30 11:36 11:36 WBC 5.42 (4.50-10.00) 10*3/uL RBC 5.62 H (4.40-5.60) 10*6/uL Hgb 16.7 (13.0-17.0) g/dL Hct 48.2 (39.6-50.0) % MCV 85.8 (80.0-97.0) fL MCH 29.7 (27.0-32.0) pg MCHC 34.6 (32.0-37.0) g/dL Plt Count 174 (140-440) 10*3/uL MPV 10.7 (9.5-12.2) fL Immature Gran % (Auto) 0.4 % Neutrophils % 66.4 % Lymphocytes % 20.3 % Monocytes % 10.0 % Eosinophils % 2.2 % Basophils % 0.7 % Immature Gran # 0.02 (0.00-0.04) 10*3/uL Neutrophils # 3.60 (1.80-7.70) 10*3/uL Lymphocytes # 1.10 (0.90-5.00) 10*3/uL Monocytes # 0.54 (0.20-1.00) 10*3/uL Eosinophils # 0.12 (0.04-0.35) 10*3/uL Basophils # 0.04 (0.00-0.10) 10*3/uL PT 10.9 (10.0-12.5) sec INR 1.0 (<1.2) APTT 22.3 (22.0-30.0) sec Sodium (137-145) mmol/L Potassium (3.5-5.1) mmol/L Chloride (98-107) mmol/L Carbon Dioxide (22-30) mmol/L Anion Gap mmol/L BUN (9-20) mg/dL Creatinine (0.66-1.25) mg/dL Est GFR (CKD-EPI)AfAm (>60 ml/min/1.73 sqM) Est GFR (CKD-EPI)NonAf (>60 ml/min/1.73 sqM) Glucose (74-99) mg/dL POC Glucose (mg/dL) 136 H (70-110) mg/dL POC Glu Grain Farmworker ID Garry Vanesa Calcium (8.4-10.2) mg/dL Total Bilirubin (0.2-1.3) mg/dL AST (17-59) U/L ALT (4-49) U/L Alkaline Phosphatase (38-126) U/L Creatine Kinase (55-170) U/L Total Protein (6.3-8.2) g/dL Albumin (3.5-5.0) g/dL Urine Color Urine Appearance (Clear) Urine pH (5.0-8.0) Ur Specific [place] (1.001-1.035) Urine Protein (Negative) Urine Glucose (UA) (Negative) Urine Ketones (Negative) Urine Blood (Negative) Urine Nitrite (Negative) Urine Bilirubin (Negative) Urine Urobilinogen (<2.0) mg/dL Ur Leukocyte Esterase (Negative) 07/07/24 07/07/24 Range/Units 11:36 12:05 WBC (4.50-10.00) 10*3/uL RBC (4.40-5.60) 10*6/uL Hgb (13.0-17.0) g/dL Hct (39.6-50.0) % MCV (80.0-97.0) fL MCH (27.0-32.0) pg MCHC (32.0-37.0) g/dL Plt Count (140-440) 10*3/uL MPV (9.5-12.2) fL Immature Gran % (Auto) % Neutrophils % % Lymphocytes % % Monocytes % % Eosinophils % % Basophils % % Immature Gran # (0.00-0.04) 10*3/uL Neutrophils # (1.80-7.70) 10*3/uL Lymphocytes # (0.90-5.00) 10*3/uL Monocytes # (0.20-1.00) 10*3/uL Eosinophils # (0.04-0.35) 10*3/uL Basophils # (0.00-0.10) 10*3/uL PT (10.0-12.5) sec INR (<1.2) APTT (22.0-30.0) sec Sodium 141 (137-145) mmol/L Potassium 4.1 (3.5-5.1) mmol/L Chloride 103 (98-107) mmol/L Carbon Dioxide 28 (22-30) mmol/L Anion Gap 10 mmol/L BUN 17 (9-20) mg/dL Creatinine 0.91 (0.66-1.25) mg/dL Est GFR (CKD-EPI)AfAm >90 (>60 ml/min/1.73 sqM) Est GFR (CKD-EPI)NonAf >90 (>60 ml/min/1.73 sqM) Glucose 136 H (74-99) mg/dL POC Glucose (mg/dL) (70-110) mg/dL POC Glu Grain Farmworker ID Calcium 9.8 (8.4-10.2) mg/dL Total Bilirubin 0.7 (0.2-1.3) mg/dL AST 26 (17-59) U/L ALT 28 (4-49) U/L Alkaline Phosphatase 58 (38-126) U/L Creatine Kinase 236 H (55-170) U/L Total Protein 6.7 (6.3-8.2) g/dL Albumin 4.1 (3.5-5.0) g/dL Urine Color Light Yellow Urine Appearance Clear (Clear) Urine pH 6.0 (5.0-8.0) Ur Specific [place] 1.050 H (1.001-1.035) Urine Protein Negative (Negative) Urine Glucose (UA) Negative (Negative) Urine Ketones Negative (Negative) Urine Blood Negative (Negative) Urine Nitrite Negative (Negative) Urine Bilirubin Negative (Negative) Urine Urobilinogen <2.0 (<2.0) mg/dL Ur Leukocyte Esterase Negative (Negative) - EKG Data -: EKG Interpreted by Me EKG Comments: 12-lead Electrocardiogram Interpretation Note EKG was reviewed and interpreted by myself. 12-lead ECG performed at 1207 is interpreted by me as revealing normal sinus rhythm at a rate of 78 beats per minute. [place] normal. [place] interval is 168 ms, QRS duration is 92 ms, QTc is 399 ms. There were no ST or T wave abnormalities to suggest myocardial ischemia or injury. R wave progression across the precordium was satisfactory. By my interpretation this EKG is non-diagnostic for acute ischemia. Critical Care Time Critical Care Time: Yes Total Critical Care Time: 31 Disposition Clinical Impression: Facial droop Narrative: CVA vs Johnson's palsy Disposition: ADMITTED IP TO THIS [facility] Condition: Stable Time of Disposition: 13:00
[2024-07-07] MEDS: methylPREDNISolone SOD SUCCI 40 MG/ML 1 ML VIAL IV STA (14:20)
[2024-07-07] MEDS: ASPIRIN 325 MG TAB PO STA (14:20)
--- NOTE | 2024-07-07 14:39 | US ---
EXAMINATION TYPE: US carotid duplex BILAT DATE OF EXAM: 07/07/2024 COMPARISON: NONE CLINICAL INDICATION: Male, 58 years old with history of stroke; right facial weakness. Stroke vs Bel ls palsy. HTN. TECHNIQUE: Grayscale, color Doppler and spectral Doppler evaluation of the bilateral carotid systems and vertebral arteries. Indirect Doppler criteria was utilized. FINDINGS: EXAM MEASUREMENTS: RIGHT: Peak Systolic Velocity (PSV) cm/sec ----- Right CCA: 105.1 ----- Right ICA: 90.8 ----- Right ECA: 88.6 ICA/CCA ratio: 0.9 RIGHT: End Diastole cm/sec ----- Right CCA: 18.2 ----- Right ICA: 19.3 ----- Right ECA: 12.8 LEFT: Peak Systolic Velocity (PSV) cm/sec ----- Left CCA: 84.2 ----- Left ICA: 71.4 ----- Left ECA: 61.6 ICA/CCA ratio: 0.8 LEFT: End Diastole cm/sec ----- Left CCA: 21.5 ----- Left ICA: 13.0 ----- Left ECA: 11.9 VERTEBRALS (direction of flow): Right Vertebral: Antegrade Left Vertebral: Antegrade Rhythm: Normal EVENT TECHNICIAN NOTES: No elevated velocities. No plaque. Color Doppler imaging shows patency with blood flow throughout the carotid artery. Spectral waveforms are within normal limits. IMPRESSION: No hemodynamically significant internal carotid arterial stenosis on either side. Criteria for Assigning % of Stenosis / Diameter reduction (Estimation based on the indirect measurements of the internal carotid artery velocities (ICA PSV). 1. Normal (no stenosis)=ICA PSV < 180 cm/s: ratio < 2.0: ICA EDV<40 cm/s. 2. Less than 50% stenosis=ICA PSV < 180 cm/s: ratio < 2.0: ICA EDV<40 cm/s. 3. 50 to 69% stenosis=ICA PSV of 180 to 230 cm/s: ration 2.0 ? 4.0: ICA EDV 40-100 cm/s. PSV 125-180 cm/sec and ICA/CCA PSV Ratio ? 2.0 is also consistent with 50-69% stenosis 4. Greater than 70% stenosis to near occlusion= ICA PSV > 230 cm/s: ratio > 4.0: ICA EDV > 100 cm/s. 5. Near occlusion= ICA PSV velocities may be low or undetectable: variable ratio and ICA EDV. 6. Total occlusion=unable to detect flow. [facility], , 07/07/2024 2:36 PM
[2024-07-07] MEDS: HEPARIN SODIUM,PORCINE 5,000 UNIT/ML 1 ML VIAL SQ SCH (21:36)
[2024-07-07 21:47] VITALS: RESP 17
--- NOTE | 2024-07-08 01:45 | HP ---
HISTORY AND PHYSICAL CHIEF COMPLAINT: Facial droop on the right side, weakness of the right side. HISTORY OF PRESENT ILLNESS: This 58-year-old gentleman with a past medical history of hypertension, hyperlipidemia, admitted with facial droop on the right side and NIH was supposed to be 3 on presentation. There was some dysarthria. The initial workup for the stroke was negative, the patient be closely monitored and Neurology evaluation also will be sought. There is no history of fever, rigors, chills. Creatine kinase is 236. PAST MEDICAL HISTORY: Reviewed and include hypertension and hyperlipidemia. Rest of the chart is also reviewed. HOME MEDICATIONS: Include BuSpar. Dose and rest of medications reviewed, but not confirmed yet. ALLERGIES: Adhesives. FAMILY HISTORY: No history of heart disease or strokes in family. SOCIAL HISTORY: Occasional alcohol. No smoking. REVIEW OF SYSTEMS: Fourteen-point review of systems is negative as mentioned, except as mentioned earlier. PHYSICAL EXAMINATION: VITAL SIGNS: Pulse 77, blood pressure 110/60, respirations 18. HEENT: Conjunctivae normal. NECK: No jugular venous distention. CARDIOVASCULAR: S1, S2 muffled. ABDOMEN: Soft, nontender. EXTREMITIES: Legs, no edema. NERVOUS SYSTEM: Right facial passive present possibly low motor neuron, otherwise no signs of cerebellar dysfunction. No nystagmus. LABORATORY DATA: Reviewed. ASSESSMENT: 1. Right-sided facial paralysis and weakness, rule out transient ischemic attack versus stroke. 2. 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 3. Elevated creatine kinase. 4. Hypertension. 5. Hyperlipidemia. 6. Hypothyroidism. 7. Multiple complex medical issues. RECOMMENDATIONS: This is a 58-year-old gentleman presented with multiple complex medical problems. We will monitor the patient closely. I would recommend Neurology consultation with Dr. Mcclure. Complete neurovascular workup resume home medications once they are confirmed. We will follow the patient closely. Prognosis guarded. Discussed with the patient understands and agrees. The patient has with MS and the patient is a caregiver. MMODL / IJN: [id number] /
[2024-07-08 07:26] VITALS: BP 129/71; PULSE 78; TEMP 97.7
[2024-07-08] MEDS: ASPIRIN 325 MG TAB PO SCH (08:13)
[2024-07-08 10:13] LABS: Basophils # (A) 0.02 X 10*3/uL (0.00-0.10); Basophils % (A) 0.2 %; Eosinophils # (A) 0.02 X 10*3/uL (0.04-0.35); Eosinophils % (A) 0.2 %; HCT 49.5 % (39.6-50.0); HGB 16.4 g/dL (13.0-17.0); Lymphocytes # (A) 1.61 X 10*3/uL (0.90-5.00); Lymphocytes % (A) 12.1 %; MCH 28.7 pg (27.0-32.0); MCHC 33.1 g/dL (32.0-37.0); MCV 86.5 FL (80.0-97.0); Mean Platelet Volume 11.5 FL (9.5-12.2); Monocytes % (A) 5.3 %; NRBC Per 100 WBC 0 X 10*3/uL (0.00-0.01); Neutrophils # (A) 10.87 X 10*3/uL (1.80-7.70); Neutrophils % (A) 81.9 %; Platelet Count 206 X 10*3/uL (140-440); RBC 5.72 X 10*6/uL (4.40-5.60); WBC 13.26 X 10*3/uL (4.50-10.00)
[2024-07-08 10:28] LABS: Chol/HDL Ratio 3.36 Ratio; LDL Cholesterol,Calculated 64.2 mg/dL (0.0-131.0); VLDL Calculation 18.66 mg/dL (5.00-40.00)
[2024-07-08 10:29] LABS: BUN/Creat Ratio 19.33 Ratio (12.00-20.00); Blood Urea Nitrogen 17.4 mg/dL (9.0-27.0); Calcium 9.2 mg/dL (8.7-10.3); Carbon Dioxide 22.9 mmol/L (21.6-31.8); Chloride 105 mmol/L (96-109); Glucose 126 mg/dL (70-110); Potassium 4.4 mmol/L (3.5-5.5); Sodium 140 mmol/L (135-145)
[2024-07-08] MEDS: allopurinoL 100 MG TAB PO SCH (11:24)
[2024-07-08] MEDS: METOPROLOL SUCCINATE (ER) 50 MG TAB.ER.24H PO SCH (11:24)
[2024-07-08] MEDS: busPIRone HCl 10 MG TAB PO SCH (11:24)
[2024-07-08] MEDS: MULTIVITAMINS, THERA 1 EACH TAB PO SCH (11:24)
[2024-07-08] MEDS: LIOTHYRONINE SODIUM 5 MCG TAB PO SCH (11:24)
[2024-07-08] MEDS: allopurinoL 300 MG TAB PO SCH (11:24)
[2024-07-08] MEDS: PANTOPRAZOLE 40 MG TABLET PO SCH (11:24)
[2024-07-08] MEDS: LEVOTHYROXINE 88 MCG TAB PO SCH (11:24)
[2024-07-08] MEDS: LOSARTAN 50 MG TAB PO SCH (11:24)
[2024-07-08] MEDS: ATORVASTATIN 40 MG TAB PO SCH (11:24)
[2024-07-08] MEDS: amLODIPine 5 MG TAB PO SCH (11:24)
--- NOTE | 2024-07-08 11:41 | CA ---
Transthoracic Echo Report Name: Chandrakant Whitmore Age: 58 Gender: M : 1965 Exam Date: 07/08/2024 10:45 Exam Location: [facility] Ht (in): 73 Wt (lb): 308 Ordering Physician: Alanna Staton MD Attending/Referring Phys: Router Tender Dorota Carmona RDCS Procedure CPT: Indications: stroke Cardiac Hx: Stroke Technical Quality: Fair Contrast 1: Agitated Saline Total Dose (mL): 2 Contrast 2: Total Dose (mL): MEASUREMENTS (Male / Female) Normal Values 2D ECHO LV Diastolic Diameter PLAX 6.2 cm 4.2 - 5.9 / 3.9 - 5.3 cm LV Systolic Diameter PLAX 4.7 cm IVS Diastolic Thickness 1.1 cm 0.6 - 1.0 / 0.6 - 0.9 cm LVPW Diastolic Thickness 0.9 cm 0.6 - 1.0 / 0.6 - 0.9 cm LV Relative Wall Thickness 0.3 RV Internal Dim ED PLAX 2.3 cm LA Systolic Diameter LX 4.0 cm 3.0 - 4.0 / 2.7 - 3.8 cm LV Diastolic Volume MOD BP 100.5 cm??? 67 - 155 / 56 - 104 cm??? LV Systolic Volume MOD BP 59.7 cm??? 22 - 58 / 19 - 49 cm??? LV Ejection Fraction MOD BP 40.6 % >= 55 % LV Cardiac Index MOD BP 1221.3 cm???/min???m??? LV Diastolic Volume MOD 4C 110.2 cm??? LV Systolic Volume MOD 4C 68.9 cm??? LV Ejection Fraction MOD 4C 37.5 % LV Cardiac Index MOD 4C 1236.4 cm???/min???m??? LV Diastolic Length 4C 8.1 cm LV Systolic Length 4C 7.6 cm LV Diastolic Volume MOD 2C 83.7 cm??? LV Systolic Volume MOD 2C 48.5 cm??? LV Ejection Fraction MOD 2C 42.1 % LV Cardiac Index MOD 2C 1052.9 cm???/min???m??? LV Diastolic Length 2C 7.3 cm LV Systolic Length 2C 7.0 cm LA Volume 73.2 cm??? 18 - 58 / 22 - 52 cm??? LA Volume Index 26.7 cm???/m??? 16 - 28 cm???/m??? M-MODE Aortic Root Diameter MM 4.2 cm LA Systolic Diameter MM 3.4 cm LA Ao Ratio MM 0.8 AV Cusp Separation MM 2.3 cm FINDINGS Left Ventricle Left ventricular ejection fraction is estimated at 45-50 %. Mildly increased left ventricular diastolic diameter. Mildly increased left ventricular systolic volume. Moderately decreased left ventricular ejection fraction. Right Ventricle Right Atrium Mild right atrial dilatation. Negative agitated saline bubble study for right to left shunt. Left Atrium Moderately increased left atrial volume. Mitral Valve Aortic Valve Tricuspid Valve Pulmonic Valve Pericardium Aorta Moderate aortic dilatation at the level of the sinuses of valsalva (root) 4.2cm CONCLUSIONS Left ventricle is mildly enlarged with fair contractility estimate ejection fraction of 45 to 50%. Enlarged right atrium. Bubble study was negative for [id number] shunt suboptimal quality Previewed by: Dr. Ulises Lee MD (Electronically Signed) Final Date: 08 Jul 2024 11:40
[2024-07-08] MEDS: TOBRAMYCIN 0.3% OPHTH DROPS 5 ML BTL BOTH EYES SCH (12:09)
--- NOTE | 2024-07-08 12:38 | P.CNNES ---
History of Present Illness Consult date: 07/08/24 Requesting physician: Chito Solano Reason for Consult: facial droop. CVA vs Johnson's palsy History of Present Illness: Patient is a 58-year-old right-handed male with history of hypertension, prediabetes, cardiomyopathy, came to the hospital yesterday at 11:05 AM for right facial weakness. Patient states that his symptoms started on Friday afternoon, when he noticed that his taste sensation was "different". It was not metallic, but not normal. Also he was having some right frontal headache off and on since Friday. He was otherwise fine. Yesterday he woke up in the morning and while he was brushing his teeth at 9 AM, noticed weakness of the right facial region. He therefore came to the hospital. Denies any numbness or tingling of the extremities, slurred speech, double vision, loss of vision or vertigo. Vital signs on arrival blood pressure 151/75, pulse [address] head showed no acute intracranial process. Chest x-ray showed possible underlying COPD. Borderline heart size. No acute process. EKG showed sinus rhythm. Blood test shows normal CBC PT PTT, normal CMP. UA negative. Home medications include Lipitor 40 mg, metoprolol, losartan, testosterone, BuSpar, amlodipine. Patient not on any antiplatelet medication. Patient denies tobacco or alcohol use. He has hypertension, prediabetes. He was diagnosed with cardiomyopathy in January 2024, follows up with Dr. Oviedo. Denies any history of strokes or TIA. Review of Systems All pertinent positive and negative review of systems mentioned HPI, otherwise unremarkable. Denies any recent upper respiratory infection, no sinus congestion. Past Medical History Past Medical History: Hyperlipidemia, Hypertension, Thyroid Disorder Additional Past Medical History / Comment(s): watches cholesterol History of Any Multi-Drug Resistant Organisms: None Reported Past Surgical History: Appendectomy, Cholecystectomy Additional Past Surgical History / Comment(s): colonoscopy, rt shoulder surgery Past Anesthesia/Blood Transfusion Reactions: No Reported Reaction Past Psychological History: No Psychological Hx Reported Smoking Status: Never smoker Past Alcohol Use History: Occasional Past Drug Use History: None Reported - Past Family History Mother Family Medical History: No Reported History Medications and Allergies Home Medications Medication Instructions Recorded Confirmed Type allopurinoL [Allopurinol] 100 mg PO DAILY 06/14/14 07/07/24 History amLODIPine [Norvasc] 5 mg PO DAILY 10/02/14 07/07/24 History Atorvastatin [Lipitor] 40 mg PO DAILY 01/28/24 07/07/24 History Levothyroxine Sodium [Synthroid] 175 mcg PO AC-BRKFST 01/28/24 07/07/24 History Liothyronine Sodium [Cytomel] 25 mcg PO BID 01/28/24 07/07/24 History Losartan Potassium [Cozaar] 100 mg PO DAILY 01/28/24 07/07/24 History Omeprazole [PriLOSEC] 20 mg PO DAILY 01/28/24 07/07/24 History Testosterone Cypionate 200 mg IM Q10D 01/28/24 07/07/24 History [Depo-Testosterone] allopurinoL [Zyloprim] 300 mg PO DAILY 01/28/24 07/07/24 History busPIRone HCl [Buspar] 10 mg PO DAILY 01/28/24 07/07/24 History Metoprolol Succinate (ER) [Toprol 50 mg PO DAILY 30 Days #30 tab 01/31/24 07/07/24 Rx XL] Multivitamins, Thera [Multivitamin 1 tab PO DAILY 07/07/24 07/07/24 History (formulary)] Allergies Allergy/AdvReac Type Severity Reaction Status Date / Time adhesive Allergy Rash/Hives Verified 07/07/24 14:08 Physical Examination - Vital Signs Vital Signs: Vital Signs Temp Pulse Pulse Pulse Resp BP BP 07/08/24 07:15 97.7 F 78 17 07/08/24 02:00 98.1 F 87 17 124/68 07/07/24 19:25 98.3 F 96 17 139/74 07/07/24 14:17 83 18 125/70 07/07/24 14:04 98.1 F 80 18 153/79 07/07/24 13:47 76 18 126/69 07/07/24 13:29 80 18 114/68 07/07/24 13:17 77 18 110/69 07/07/24 13:02 81 20 106/64 07/07/24 12:47 81 18 113/64 07/07/24 12:32 80 18 128/62 07/07/24 12:17 82 20 138/71 BP Pulse Ox 07/08/24 07:15 129/71 94 L 07/08/24 02:00 93 L 07/07/24 19:25 99 07/07/24 14:17 96 07/07/24 14:04 95 07/07/24 13:47 97 07/07/24 13:29 96 07/07/24 13:17 96 07/07/24 13:02 96 07/07/24 12:47 96 07/07/24 12:32 95 07/07/24 12:17 95 Intake and Output 07/07/24 07/08/24 07/08/24 22:59 06:59 14:59 Intake Total 540 590 Balance 540 590 Intake: Oral 540 590 Other: Voiding Method Toilet Urinal # Voids 2 2 # Bowel Movements 1 Patient is a middle-aged male, in no acute distress. Patient is alert awake oriented to time place and person. Speech and language functions are normal. Patient can name and repeat very well. No aphasia or dys arthria. Attention, concentration and fund of knowledge is adequate. On cranial nerve examination, pupils are equal, round and reacting to light, visual corral are full on confrontation, with no neglect on double simultaneous stimulation. Extraocular muscles are intact with no nystagmus. Patient has right facial weakness, peripheral type, involving the upper and lower side of the face. Tongue protrudes to the midline. Palatal elevation and sensation normal, hearing and shoulder shrug normal, facial sensation normal. On muscle strength testing, there is no pronator drift and the strength is normal in arms and legs distally and proximally. Deep tendon reflexes are symmetric trace at the biceps, absent at the brachioradialis and lower limbs. Plantars downgoing. Sensory to touch is equal with no neglect on double simultaneous stimulation. Cerebellar function showed no ataxia for [id number] testing. No dysdiadochokinesia. No ataxia for [id number] testing on either side. Tone and bulk of muscles normal. Gait deferred.. On general examination, there is no carotid bruit or murmur, S1-S2 audible. Chest is clear on consultation. Abdomen is soft nontender. No organomegaly, bowel sounds present. Peripheral pulses are present. No peripheral edema. 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 Patient has complete weakness of right facial region, upper and lower part. Otherwise examination is completely nonfocal. * Hypertension * Prediabetes * Obesity * Cardiomyopathy Plan: Patient probably has right Johnson's palsy. Rest of the examination is completely nonfocal. Recommend prednisone 60 mg daily for 7 days, then decrease by 10 mg daily until off. Valtrex 1 g 3 times daily for 7 days. Artificial tears every 2 hours, Lacri-Lube at night to prevent corneal ulcer. May need eye patch. 2-D echo revealed LV EF 45 to 50%. Mildly increased left ventricular diastolic diameter. Moderately decreased left ventricular ejection fraction. Moderately increased left atrial volume. Negative agitated saline bubble study for [id number] shunt. Patient follows up with Dr. Fuentes. CTA head and neck showed: Widely patent vertebral and carotid arteries in the neck. No large vessel intracranial arterial occlusion, significant stenosis or aneurysmal change seen. Subnormal anatomic variation. Fasting a.m. lipid panel cholesterol 118, LDL of 64, HDL 35 and triglycerides 93. Continue Lipitor 40 mg daily. Blood pressure is well-controlled. Recommend starting aspirin 81 mg daily because of multiple vascular risk factors as above. PT, OT, speech therapy Neurologically clear for discharge. May follow-up with neurologist outpatient. Thank you for the consult.
[2024-07-08] MEDS: valACYclovir HCL 1,000 MG TABLET PO SCH (13:29)
[2024-07-08] MEDS: predniSONE 20 MG TAB PO SCH (13:30)
--- NOTE | 2024-07-08 16:21 | DS ---
DISCHARGE SUMMARY FINAL DIAGNOSES: 1. Right-sided facial paralysis, possible Johnson's palsy. Transient ischemic attack unlikely per Neurology. 2. Elevated CK. 3. Hypertension. 4. Hyperlipidemia. 5. Multiple medical issues. DISCHARGE DISPOSITION: The patient is being discharged in stable condition and guarded prognosis. HISTORY OF PRESENT ILLNESS: This is a 58-year-old gentleman admitted with right-sided facial palsy, evaluated for TIA. Workup was negative, Neurology recommended treatment for Johnson's palsy, so the patient is being discharged in stable condition and prognosis guarded. DISCHARGE MEDICATIONS: 1. Resume the home medications. 2. Valtrex 1 g t.i.d. for 1 week. 3. Ecotrin 81 mg. 4. Prednisone taper 60 mg p.o. daily for 7-day taper per Neurology. Follow up with primary physician. Follow up with Dr. Enriquez. Follow up with Dr. Sofia in 1 week. Prognosis guarded. The patient is extremely keen on going home to take care of his . MMODL / IJN: [id number] /
== END 2024-07-08 14:04 | disposition home or self-care (01) | DRG 74 ==
LOC: EC 11:05 → 6NMEDSUR 13:29
PROVIDERS: ADMIT Hospitalist; ATTEND Hospitalist
DX: G51.0 Bell's palsy (principal); I42.9 Cardiomyopathy, unspecified; E03.9 Hypothyroidism, unspecified; I10 Essential (primary) hypertension; E66.9 Obesity, unspecified; Z68.41 Body mass index [BMI] 40.0-44.9, adult; E78.5 Hyperlipidemia, unspecified; R47.1 Dysarthria and anarthria; R53.1 Weakness; R73.03 Prediabetes; Z63.6 Dependent relative needing care at home; Z79.890 Hormone replacement therapy; Z79.899 Other long term (current) drug therapy
CPT/HCPCS: 36415; 70450; 70496; 70498; 71046; 80048; 80053; 80061; 81003; 82550; 85025; 85610; 85730; 93005; 93308; 93880; 96361; 96374; 99291

== ENCOUNTER → 2024-07-15 | Outpatient (CLI) | payer MEDICARE ==
[2024-07-15 15:30] LABS: Basophils # (A) 0.03 X 10*3/uL (0.00-0.10); Basophils % (A) 0.3 %; Eosinophils # (A) 0.09 X 10*3/uL (0.04-0.35); Eosinophils % (A) 0.8 %; HCT 51.1 % (39.6-50.0); HGB 16.8 g/dL (13.0-17.0); Lymphocytes # (A) 2.72 X 10*3/uL (0.90-5.00); Lymphocytes % (A) 24.3 %; MCH 28.7 pg (27.0-32.0); MCHC 32.9 g/dL (32.0-37.0); MCV 87.2 FL (80.0-97.0); Mean Platelet Volume 11.1 FL (9.5-12.2); Monocytes # (A) 0.89 X 10*3/uL (0.20-1.00); Monocytes % (A) 7.9 %; NRBC Per 100 WBC 0 X 10*3/uL (0.00-0.01); Neutrophils # (A) 7.34 X 10*3/uL (1.80-7.70); Neutrophils % (A) 65.5 %; Platelet Count 221 X 10*3/uL (140-440); RBC 5.86 X 10*6/uL (4.40-5.60); RDW 13.2 % (11.5-14.5)
[2024-07-15 15:48] LABS: Blood Urea Nitrogen 20.2 mg/dL (9.0-27.0); Calcium 9.6 mg/dL (8.7-10.3); Carbon Dioxide 30.3 mmol/L (21.6-31.8); Chloride 104 mmol/L (96-109); Glucose 108 mg/dL (70-110); Potassium 4.3 mmol/L (3.5-5.5); Sodium 146 mmol/L (135-145)
== END | disposition home or self-care (01) ==
LOC: LABWHC1 09:09
PROVIDERS: ATTEND Hospitalist
DX: G51.0 Bell's palsy (principal)
CPT/HCPCS: 36415; 80048; 85025